=== PATIENT | female | born 1945 | race Caucasian/White ===

== ENCOUNTER 2017-10-09 19:25 | Inpatient (IN) | payer MEDICARE, MEDICAID ==
[~2017-10-09] VITALS: Ht 167.6 cm; Wt 73.0 kg
[2017-10-09] VITALS (10 sets, daily range): BP systolic 72–141; BP diastolic 25–89
--- NOTE | 2017-10-09 19:25 | NUR ---
FOUND TRIPODDING, RETRACTING AND SATURATING 88% NRB; RA SATS REPORTED BY STAFF. ARRIVED ON C-PAP W/ALBUTEROL. PT IS HYPOTENSIVE AND TACHYPNIC. IV LINE PLACED COMMUNICATIONS EQUIPMENT SUPERVISOR LEFT HAND 20G. A/OX3 BUT LETHARGIC. WILL CONTINUE TO MONITOR FOR ANY CHANGES DURING THE SHIFT.
--- NOTE | 2017-10-09 19:26 | NUR ---
ER AT BEDSIDE FOR EVAL
--- NOTE | 2017-10-09 19:30 | NUR ---
BLOOD SENT TO LAB WITH PER ASSESSMENT NURSE
[2017-10-09 19:54] LABS: CARBON DIOXIDE 28 mmol/L (21-32); CHLORIDE 97 mmol/L (98-107); CREATININE 3.3 mg/dL (0.6-1.3); GLUCOSE 283 mg/dL (74-106); POTASSIUM 4.8 mmol/L (3.5-5.1); SODIUM SERUM 136 mmol/L (136-145); UREA NITROGEN, BLOOD 45 mg/dL (7-18)
--- NOTE | 2017-10-09 19:54 | NUR ---
RT AT BEDSIDE. PT TO GO ON BIPAP. AWAITING COMPLETION FOR SETTINGS
--- NOTE | 2017-10-09 19:57 | NUR ---
THERMOSTAT MAKER AT BEDSIDE
[2017-10-09 19:58] LABS: INR 1.01 (0.85-1.15)
[2017-10-09 20:04] LABS: TROPONIN I 0.696 ng/mL (0.00-0.056)
--- NOTE | 2017-10-09 20:07 | NUR ---
BI-PAP SETTINGS 01/10 RATE OF 14 WITH 02 SATURATION OF 99%
--- NOTE | 2017-10-09 20:07 | NUR ---
ABG BY RT AT BEDSIDE CURRENTLY
[2017-10-09 20:08] LABS: BASOPHILS % (AUTO) 0.3 % (0.0-2.0); EOSINOPHILS % (AUTO) 1.3 % (0.0-6.0); HEMATOCRIT 29 % (33-45); HEMOGLOBIN 9.7 g/dL (11.5-14.8); LYMPHOCYTES # (AUTO) 0.7 /CMM (0.8-4.8); LYMPHOCYTES % (AUTO) 6.2 % (20.0-44.0); MEAN CORPUSCULAR HGB CONC 34 g/dl (31.0-36.0); MEAN CORPUSCULAR VOLUME 87 fL (82-100); MONOCYTES % (AUTO) 9.1 % (2.0-12.0); NEUTROPHILS # (AUTO) 9.3 /CMM (1.8-8.9); NEUTROPHILS % (AUTO) 83.1 % (43.0-81.0); PLATELET COUNT (AUTO) 228 /CMM (150-450); RDW COEFFICIENT OF VARIATION 14.9 (11.5-15.0); RED BLOOD CELL COUNT(AUTO) 3.32 MIL/uL (4.0-5.2); WHITE BLOOD COUNT (AUTO) 11.1 K/uL (4.3-11.0)
[2017-10-09] MEDS ORDERED: ALBUTEROL FS 2.5 MG/3 ML VIAL.NEB ONE (20:28)
[2017-10-09] MEDS ORDERED: IPRATROPIUM NEB FS 0.5 MG/2.5 ML AMPUL.NEB ONE (20:28)
[2017-10-09] MEDS ORDERED: ALBUTEROL SULFATE 8 GM HFA.AER.AD IH ONE (20:30)
[2017-10-09] MEDS ORDERED: IPRATROPIUM NEB FS 0.5 MG/2.5 ML AMPUL.NEB NEB ONE (20:30)
[2017-10-09 20:57] LABS: ABG BASE EXCESS 2.5 mmol/L; ABG OXYGEN SATURATION 97.5 % (92.0-98.5); ABG PCO2 44.1 mmHg (35.0-45.0); ABG PH 7.412 (7.350-7.450); ABG PO2 112.9 mmHg (75.0-100.0); AaDO2 121.6 mmHg; COHb 0.3 % (0.5-1.5); MetHb 0.3 % (0.0-1.5); O2Hb 96.9 % (94.0-97.0); SITE, ABG Left Radial; VENT MODE, BG BIPAP 15/5
--- NOTE | 2017-10-09 21:10 | NUR ---
PT IS CURRENTLY ON BIPAP 15/5 R 14 40%. ABG RESULTS GIVEN TO MD. PT IS TO REMAIN ON BIPAP ON NOTED SETTINGS. BREATHING TX GIVEN ORDERED. VERIFY WITH MD 5 MG OF 2.5/3 ALBUTEROL AND 1 MG OF ATROVENT. WILL CONT TO MONITOR PT.
--- NOTE | 2017-10-09 21:28 | NUR ---
PT IS ASSIGNED TO ICU RM#: [id number], PT IS DIAGNOSED WITH RESPIRATORY FAILURE, AND DR WEINER IS THE ACCEPTING MD.
[2017-10-09] MEDS ORDERED: methylPREDNISolone SOD SUCC 125 MG/2ML VIAL IV ONE (21:30)
[2017-10-09] MEDS ORDERED: FUROSEMIDE 40 MG/4 ML VIAL IV ONE (21:30)
[2017-10-09] MEDS ORDERED: FUROSEMIDE 40 MG/4 ML VIAL ONE (21:34)
[2017-10-09] MEDS ORDERED: methylPREDNISolone SOD SUCC 125 MG/2ML VIAL ONE (21:34)
--- NOTE | 2017-10-09 21:52 | NUR ---
REPORT GIVEN TO YAMIL
[2017-10-09] MEDS ORDERED: MAGNESIUM HYDROXIDE 30 ML UDC PO PRN (22:00)
[2017-10-09] MEDS ORDERED: MAG HYDROX/AL HYDROX/SIMETH 30 ML UDC PO PRN (22:00)
[2017-10-09] MEDS ORDERED: ONDANSETRON HCL/PF 4 MG/2 ML VIAL IVP PRN (22:00)
[2017-10-09] MEDS ORDERED: Z GUARD REMEDY 2 OZ OINT TP PRN (22:00)
[2017-10-09] MEDS ORDERED: ALBUTEROL FS 2.5 MG/0.5 ML VIAL.NEB NEB PRN (22:00)
[2017-10-09] MEDS ORDERED: ZOLPIDEM TARTRATE 5 MG TABLET PO PRN (22:00)
--- NOTE | 2017-10-09 22:00 | NUR ---
WOODWORKER NOTES ADMITTED FROM ER WHO PRESENTED FROM [facility] WITH SHORTNESS OF BREATH,DESATURATION HX OF CHF,CVA,TN,HTN,GERD,EMPHYSEMA,ESRD,DM,DEPRESSION. IN ER WAS GIVEN SOLUMEDROL 125 MG,LASIX 40 MG,ALBUTEROL TX 2X AND PLACED ON BIPAP WITH IMPROVEMENT. CXR SHOWED MILD BIBASILAR ATELECTASIS. BUN=45,CREAT=3.5EVI=[id number],TROPONIN=0.696 PH=7.41,PCO2=44.1'BS6=351.9 AWAKE,ALERT,VERBALLY RESPONSIVE,ANSWERS APPROPRIATELY,FOLLOWS COMMANDS BUT FEELS WEAK AND TIRED.,MOVES ALL EXTREMITIES BUT A LITTLE WEAK,ABLE TO LIFT ARMS AND LEGS.dIALYSIS CATHETER VIA LEFT SUBCLAVIAN AREA,HEPLOCKS ON RIGHT AC AND LEFT WRIST.COMFORT CARE DONE,NEEDS ATTENDED.WILL CLOSELY MONITOR RESPIRATORY STATUS ,WILL MAINTAIN ON BIPAP ALL NIGHT TOLERATED.
--- NOTE | 2017-10-09 22:19 | NUR ---
PT IS AWAKE ALERT. RECEIVED FROM ER ON BIPAP 15/5, 14, 40%. BS RALES BILAT. MEPILEX IN PLACE. BIPAP ALARMS SET AND AUDIBLE. AMBU BAG AT BEDSIDE. BIPAP PLUGGED INTO RED OUTLET. WILL CONTINUE TO MONITOR.
[2017-10-09] MEDS ORDERED: INSU100C10 SQ (22:21)
[2017-10-09] MEDS ORDERED: SEVE800T8 PO (22:21)
[2017-10-09] MEDS ORDERED: METO25TA6 PO (22:21)
[2017-10-09] MEDS ORDERED: INSU100V7 SQ (22:21)
[2017-10-09] MEDS ORDERED: PANT40TA4 PO (22:21)
[2017-10-09] MEDS ORDERED: ATOR20TA PO (22:21)
[2017-10-09] MEDS ORDERED: CLOP75TA15 PO (22:21)
[2017-10-09] MEDS ORDERED: ALBU0.633 NEB (22:21)
[2017-10-09] MEDS ORDERED: IPRA12.9 INH (22:21)
[2017-10-10] VITALS (40 sets, daily range): BP systolic 80–179; BP diastolic 30–87
--- NOTE | 2017-10-10 02:00 | NUR ---
V/STOL LANDING SIGNAL OFFICER NOTES ASLEEP,AROUSABLE,MAINTAINED ON BIPAP TOLERATING WELL ,REMAINS RESPONSIVE,NOT IN ANY DISTRESS.
[2017-10-10] MEDS ORDERED: DEXTROSE 50%-WATER 50 ML DISP.SYRIN IV PRN (02:30)
[2017-10-10 04:45] LABS: BASOPHILS % (AUTO) 0.1 % (0.0-2.0); HEMATOCRIT 27 % (33-45); HEMOGLOBIN 8.8 g/dL (11.5-14.8); LYMPHOCYTES # (AUTO) 0.5 /CMM (0.8-4.8); MEAN CORPUSCULAR HGB CONC 33 g/dl (31.0-36.0); MEAN CORPUSCULAR VOLUME 87 fL (82-100); MONOCYTES # (AUTO) 0.2 /CMM (0.1-1.30); MONOCYTES % (AUTO) 1.8 % (2.0-12.0); NEUTROPHILS # (AUTO) 9.1 /CMM (1.8-8.9); NEUTROPHILS % (AUTO) 93.1 % (43.0-81.0); PLATELET COUNT (AUTO) 201 /CMM (150-450); RDW COEFFICIENT OF VARIATION 15.8 (11.5-15.0); RED BLOOD CELL COUNT(AUTO) 3.06 MIL/uL (4.0-5.2); WHITE BLOOD COUNT (AUTO) 9.8 K/uL (4.3-11.0)
--- NOTE | 2017-10-10 05:00 | NUR ---
SALES ENABLEMENT LEAD NOTES AM CARE DONE,SKIN REMAINS INTACT WITH SMALL AREA OF REDNESS AT SACRAL COVERED WITH MEPILEX 0700 REPORT GIVEN TO DULCE SMART
[2017-10-10 05:03] LABS: CALCIUM, SERUM 9.1 mg/dL (8.5-10.1); CARBON DIOXIDE 27 mmol/L (21-32); CHLORIDE 98 mmol/L (98-107); CREATININE 3.9 mg/dL (0.6-1.3); GLUCOSE 269 mg/dL (74-106); MAGNESIUM 2.3 mg/dL (1.8-2.4); PHOSPHORUS 4.1 mg/dL (2.5-4.9); POTASSIUM 5.2 mmol/L (3.5-5.1); SODIUM SERUM 136 mmol/L (136-145); UREA NITROGEN, BLOOD 58 mg/dL (7-18)
[2017-10-10 05:13] LABS: CHOLESTEROL 124 mg/dL (<200); HDL CHOLESTEROL 74 mg/dL (40-60); LDL 43 mg/dL (0-99); TRIGLYCERIDES 45 mg/dL (30-150)
--- NOTE | 2017-10-10 07:15 | NUR ---
ARROW POINT ATTACHER CLOTILDE RECEIVED PATIENT AOX2-3 FOLLOW COMMANDS , ON BIPAP SETTINGS ORDERED WITH FIO2 40% SPO2 OF 100% , SR 75 ON BEDSIDE MONITOR , IV OF R WRIST AND R AC # 20 PATENT AND INTACT SL , L IJ HD CATH C/D/I , ALL NEEDS ATTENDED , BED ON LOW AND LOCKED POSITION ,SIDE RAILS X2 ,CALL LIGHT WITHIN REACH HOB @ 45 , WILL CONTINUE TO MONITOR
[2017-10-10] MEDS: BLOOD SUGAR DIAGNOSTIC 1 EACH STRIP VI SCH ×4 (07:48→21:23)
--- NOTE | 2017-10-10 08:50 | NUR ---
RECORD RETRIEVAL SPECIALIST NOTES SEEN AND EVALUATED BY DR ZELAYA PT CURRENTLY ON 5LPM NC SPO2 95% , NOT IN ACUTE DISTRESS , SPO2 OF 95-100% , AFEBRILE , V/S STABLE , DISCUSSED LABS AND CHEST XRMD PAULINE AWARE .
--- NOTE | 2017-10-10 08:50 | NUR ---
RT NOTE: ALERT PATIENT TAKEN OFF BIPAP AND PLACED ON 5LPM VIA NASAL CANNULA PER . TOLERATING WELL. RESPIRATIONS ARE EVEN AND UNLABORED. WILL CONTINUE TO MONITOR. NURSE(DULCE) AWARE.
[2017-10-10] MEDS ORDERED: FUROSEMIDE 40 MG/4 ML VIAL IV SCH (09:00)
--- NOTE | 2017-10-10 09:00 | NUR ---
HOME COORDINATOR NOTES SEEN AND EVALUATED BY DR SLOAN , DISCUSSED LABS , PT AOX3 , OFF BIPAP , ON 5LPM NC SPO2 OF 100% , WITH NO SIGNS OF DISTRESS , DISCUSSED THAT THERE IS NO DIET ORDER , BS OF 308MG/DL , ON STEROIDS , UNKNOWN WHEN IS THE LAST HD , PER MD START 1800 2GM SODIUM DIET , ORDERS CARRIED OUT .
--- NOTE | 2017-10-10 09:03 | NUR ---
CLINICAL DIETITIAN NOTES RT INGRAM AT BEDSIDE ,BIPAP ON HOLD , PATIENT PLACED ON 5LPM NC SPO2 OF 92-100% , WILL CONTINUE TO MONITOR
[2017-10-10] MEDS: ASPIRIN 325 MG TABLET PO SCH (09:12)
[2017-10-10] MEDS: PANTOPRAZOLE 40 MG TABLET.DR PO SCH (09:12)
[2017-10-10] MEDS: CLOPIDOGREL BISULFATE 75 MG TABLET PO SCH (09:13)
[2017-10-10] MEDS: methylPREDNISolone SOD SUCC 125 MG/2ML VIAL IV SCH ×4 (09:13→21:00)
[2017-10-10] MEDS: SEVELAMER CARBONATE 0.8 GM POWD.PACK GT SCH ×3 (09:16→17:09)
[2017-10-10] MEDS: METOPROLOL TARTRATE 25 MG TABLET PO SCH ×2 (09:17→16:53)
[2017-10-10] MEDS: INSULIN REGULAR, HUMAN 100 UNIT/ML 3 ML VIAL SQ PRN ×3 (09:26→16:58)
[2017-10-10 09:48] LABS: THYROID STIMULATING HORMONE 0.743 uIU/mL (0.358-3.74)
--- NOTE | 2017-10-10 10:12 | NUR ---
VULNERABILITY ASSESSMENT ANALYST NOTES HD AHMED AT BEDSIDE FOR HD , PT CURRENTLY STABLE PRIOR TO HD , AFEBRILE , V/S STABLE , WILL CONTINUE TO MONITOR
[2017-10-10] MEDS ORDERED: LEVOFLOXACIN 500 MG /D5W 100ML 500 MG in PREMIX 1 EA IV ONE (11:00)
[2017-10-10] MEDS ORDERED: ALBUMIN 25% 25 GM in PREMIX 1 EA IV ONE (11:30)
--- NOTE | 2017-10-10 12:10 | NUR ---
REFLOW OPERATOR NOTES PATIENT STABLE POST HD , TOLERATED WELL . NO OUTPUT NOTED , WILL CONTINUE TO MONITOR
[2017-10-10] MEDS: ALBUTEROL FS 2.5 MG/0.5 ML VIAL.NEB NEB SCH ×2 (15:02→19:57)
[2017-10-10] MEDS: GUAIFENESIN/D-METHORPHAN HB 5 ML UDC PO PRN ×2 (15:11→21:43)
[2017-10-10] MEDS: IPRATROPIUM NEB FS 0.5 MG/2.5 ML AMPUL.NEB NEB SCH (19:57)
--- NOTE | 2017-10-10 20:28 | NUR ---
received pt from day shift, alert, follows commands, SR, on 5L NS, sat well, lungs partially congested, some edema noted, tolerates feeding, anuric HD patient, v/s stable, no pain, pt turned and repositioned.
[2017-10-10] MEDS: ATORVASTATIN 10 MG TABLET PO SCH (21:05)
[2017-10-10] MEDS: *INSULIN REGULAR(HUMULIN R)HUM 100 UNIT/ML VIAL SQ PRN (21:23)
[2017-10-10 21:41] LABS: OCCULT BLOOD STOOL NEGATIVE (NEGATIVE)
[2017-10-11] VITALS (20 sets, daily range): BP systolic 81–155; BP diastolic 28–99
--- NOTE | 2017-10-11 00:27 | NUR ---
pt is resting in the bed, v/s stable, no pain, pt turned and repositioned q2hrs.
[2017-10-11] MEDS: IPRATROPIUM NEB FS 0.5 MG/2.5 ML AMPUL.NEB NEB SCH ×3 (01:31→20:03)
[2017-10-11] MEDS: ALBUTEROL FS 2.5 MG/0.5 ML VIAL.NEB NEB SCH ×3 (01:31→20:03)
--- NOTE | 2017-10-11 04:23 | NUR ---
pt is resting in the bed, no acute distress overnight, alert, follows commands, SR, on 5L NC, sat well, v/s stable, no pain, pt cleaned, changed and repositioned q2hrs.
[2017-10-11 04:30] LABS: HEMATOCRIT 22 % (33-45); HEMOGLOBIN 7.2 g/dL (11.5-14.8); LYMPHOCYTES # (AUTO) 0.8 /CMM (0.8-4.8); LYMPHOCYTES % (AUTO) 7.4 % (20.0-44.0); MEAN CORPUSCULAR HGB CONC 32 g/dl (31.0-36.0); MEAN CORPUSCULAR VOLUME 88 fL (82-100); MONOCYTES # (AUTO) 0.7 /CMM (0.1-1.30); MONOCYTES % (AUTO) 5.9 % (2.0-12.0); NEUTROPHILS # (AUTO) 9.6 /CMM (1.8-8.9); NEUTROPHILS % (AUTO) 86.7 % (43.0-81.0); PLATELET COUNT (AUTO) 227 /CMM (150-450); RED BLOOD CELL COUNT(AUTO) 2.54 MIL/uL (4.0-5.2); WHITE BLOOD COUNT (AUTO) 11.1 K/uL (4.3-11.0)
[2017-10-11 04:48] LABS: ALANINE AMINOTRANSFERASE 25 U/L (12-78); ALBUMIN 2.6 g/dL (3.4-5.0); ALKALINE PHOSPHATASE 93 U/L (46-116); ASPARTATE AMINOTRANSFERASE 15 U/L (15-37); BILIRUBIN,TOTAL 0.3 mg/dL (0.2-1.0); CARBON DIOXIDE 23 mmol/L (21-32); CHLORIDE 100 mmol/L (98-107); CREATININE 4.5 mg/dL (0.6-1.3); GLUCOSE 270 mg/dL (74-106); MAGNESIUM 3.1 mg/dL (1.8-2.4); PHOSPHORUS 5.8 mg/dL (2.5-4.9); SODIUM SERUM 137 mmol/L (136-145); TOTAL PROTEIN, SERUM 6.8 g/dL (6.4-8.2); UREA NITROGEN, BLOOD 66 mg/dL (7-18)
[2017-10-11 04:57] LABS: LYMPHOCYTES % (MANUAL) 7 % (16-48); MONOCYTES % (MANUAL) 3 % (0-11.0); NEUTROPHILS % (MANUAL) 90 (42-76); TROPONIN I 0.587 ng/mL (0.00-0.056)
[2017-10-11 05:22] LABS: FERRITIN 1277 ng/mL (8-388)
--- NOTE | 2017-10-11 07:10 | NUR ---
RN NOTES RECEIVED PT ASLEEP, EASILY AROUSABLE. ON 02 AT 3LPM VIA NC. HOB ELEVATED. NO RESPIRATORY DISTRESS NOTED. NO SOB NOTED. IV LINES IN PLACE. PT REPOSITIONED. COMFORTABLE. BLE ELEVATED. CALL LIGHT WITHIN REACH. WILL MONITOR.
--- NOTE | 2017-10-11 08:00 | NUR ---
RN NOTES HD STARTED. VS STABLE. NO RESPIRATORY DISTRESS NOTED. WILL MONITOR
[2017-10-11] MEDS: BLOOD SUGAR DIAGNOSTIC 1 EACH STRIP VI SCH ×4 (08:25→21:57)
[2017-10-11] MEDS: methylPREDNISolone SOD SUCC 125 MG/2ML VIAL IV SCH ×4 (09:57→21:57)
[2017-10-11] MEDS: CLOPIDOGREL BISULFATE 75 MG TABLET PO SCH (09:57)
[2017-10-11] MEDS: PANTOPRAZOLE 40 MG TABLET.DR PO SCH (09:57)
[2017-10-11] MEDS: SEVELAMER CARBONATE 0.8 GM POWD.PACK GT SCH ×3 (09:57→17:35)
[2017-10-11] MEDS: ASPIRIN 325 MG TABLET PO SCH (09:57)
[2017-10-11] MEDS: METOPROLOL TARTRATE 25 MG TABLET PO SCH ×2 (09:57→16:33)
--- NOTE | 2017-10-11 10:00 | NUR ---
RN NOTES HD DONE. REMOVED 1L. VS STABLE. TOLERATED WELL. WILL MONITOR.
[2017-10-11] MEDS: INSULIN REGULAR, HUMAN 100 UNIT/ML 3 ML VIAL SQ PRN ×3 (10:12→16:50)
[2017-10-11] MEDS: GUAIFENESIN/D-METHORPHAN HB 5 ML UDC PO PRN ×2 (10:19→21:57)
--- NOTE | 2017-10-11 10:30 | NUR ---
RN NOTES TRANSFERRED PT TP ROOM 112-1. PT A/OX3-4. ON 02 AT 3LPM VIA NC. NO RESPIRATORY DISTRESS NOTED. NO SOB NOTED. DENIES ANY PAIN. VS WNL. PT COMFORTABLE. FLAVIA SMART AT BEDSIDE. TOOK OVER PT'S CARE.
--- NOTE | 2017-10-11 10:39 | NUR ---
RN NOTE RECEIVED REPORT FROM KESHIA IN ICU. RECEIVED PATIENT ALERT AND ORIENTED X3 SHE IS ABLE TO MAKE THINGS KNOWN AND VERBALIZE NEEDS. BREATHING EVEN AND UNLABORED WITH NO DISTRESS NOTED. CURRENTLY ON 3L VIA NC SATURATING WELL. ON BEAUTY SCHOOL INSTRUCTOR SINUS RHYTHM HR OF 80. IV SITE INTACT AND PATENT. REORIENTED PATIENT WITH CALL LIGHT AND NURSES BUTTON IF NEEDED. BED LOCKED AND LOW POSITION. PLACED CALL LIGHT WITH IN REACH. WILL CONTINUE TO MONITOR CLOSELY
--- NOTE | 2017-10-11 19:15 | NUR ---
HYPO SPLASHER NOTE RECEIVED PATIENT AOX3, WITH HOB ELEVATED, DENIES HAVING ANY PAIN, + NONPRODUCTIVE COUGH, OXYGEN AT 3L VIA NC, TELE SR 63, NO CARDIAC OR RESPIRATORY DISTRESS NOTED, SKIN KEPT CLEAN AND DRY, RAC #20 SL, R WRIST #20 SL, BOTH PATENT, FLUSHING WELL, SITE CDI, L SUBCLAVIAN HD CATH, SITE COVERED WITH DRESSING CLEAN AND DRY, SAFETY MAINTAINED AT ALL TIMES, BED IN LOW LOCKED POSITION, CALL LIGHT WITHIN REACH, WILL CONTINUE TO MONITOR FOR ANY CHANGES IN CONDITION.
--- NOTE | 2017-10-11 19:24 | NUR ---
RN NOTE PATIENT REMAINED STABLE THROUGHOUT SHIFT WITH NO ACUTE DISTRESS. WILL ENDORSE TO NEXT SHIFT TO CONTINUE CONTINUITY OF CARE.
[2017-10-11] MEDS: ATORVASTATIN 10 MG TABLET PO SCH (21:57)
[2017-10-11] MEDS: *INSULIN REGULAR(HUMULIN R)HUM 100 UNIT/ML VIAL SQ PRN (22:06)
[2017-10-11] MEDS: LORAZEPAM 1 MG TABLET PO PRN (23:06)
[2017-10-12] VITALS: BP 96/47
[2017-10-12] MEDS: IPRATROPIUM NEB FS 0.5 MG/2.5 ML AMPUL.NEB NEB SCH ×4 (01:22→19:48)
[2017-10-12] MEDS: ALBUTEROL FS 2.5 MG/0.5 ML VIAL.NEB NEB SCH ×4 (01:22→19:48)
[2017-10-12 04:00] VITALS: BP 134/93
[2017-10-12] MEDS: BLOOD SUGAR DIAGNOSTIC 1 EACH STRIP VI SCH ×4 (07:56→21:41)
[2017-10-12 08:00] VITALS: BP 105/42
--- NOTE | 2017-10-12 08:00 | NUR ---
TELE1/RN AM SHIFT INITIAL RECEIVED PT ASLEEP, A/O X 3, PT DENIES RESPIRATORY DISTRESS, ON 3L O2 VIA N/C SATURATING @ 95%, PT NOTED RHONCHI TO DIMINISHED LUNG SOUNDS. ON TELE WITH SINUS RHYTHM, HR 76. IV SITES PATENT WITH NO S/S OF INFECTION, SL. DIALYSIS CATHETER DRESSING INTACT & DRY. BLOOD GLUCOSE CHECKED, RESULT 379, NO S/S OF HYPERGLYCEMIA, PT TO BE GIVEN 15 UNITS OF REGULAR INSULIN PER ORDERED SLIDING SCALE. PT IS COMFORTABLE, SCHEDULED AM MEDS TO BE GIVEN. CL WITHIN REACHED AND SAFETY MAINTAINED. ON GOING MONITORING.
[2017-10-12] MEDS: INSULIN REGULAR, HUMAN 100 UNIT/ML 3 ML VIAL SQ PRN ×3 (08:36→17:30)
[2017-10-12] MEDS: PANTOPRAZOLE 40 MG TABLET.DR PO SCH (08:37)
[2017-10-12] MEDS: ASPIRIN 325 MG TABLET PO SCH (08:37)
[2017-10-12] MEDS: methylPREDNISolone SOD SUCC 125 MG/2ML VIAL IV SCH ×3 (08:37→17:31)
[2017-10-12] MEDS: CLOPIDOGREL BISULFATE 75 MG TABLET PO SCH (08:37)
[2017-10-12] MEDS: METOPROLOL TARTRATE 25 MG TABLET PO SCH ×2 (08:37→17:33)
[2017-10-12] MEDS: SEVELAMER CARBONATE 0.8 GM POWD.PACK GT SCH ×3 (08:37→17:32)
[2017-10-12] MEDS: LEVOFLOXACIN 250 MG /D5W 50 ML 250 MG in PREMIX 1 EA IV SCH (11:35)
[2017-10-12] MEDS: INSULIN GLARGINE, 100 UNIT/ML CARTRIDGE SQ SCH ×2 (11:35→21:49)
--- NOTE | 2017-10-12 12:00 | NUR ---
MS1/RN NOON ROUNDS PT NOTED COUGHING A BIT, BUT NO SOB. ON GOING MONITORING.
[2017-10-12 16:00] VITALS: BP 106/40
--- NOTE | 2017-10-12 16:00 | NUR ---
MS1/RN AFTERNOON ROUNDS PM CARE PROVIDED, NO CHANGE OF CONDITION. ON GOING MONITORING.
--- NOTE | 2017-10-12 19:30 | NUR ---
MS1/RN AM SHIFT END NOTES ALL NEEDS MET. NO ACUTE CHANGE OF CONDITION NOTED DURING THE SHIFT. PT ENDORSED TO PM NURSE TO CONTINUE CARE. CL WITHIN REACHED AND SAFETY MAINTAINED.
[2017-10-12 20:00] VITALS: BP 115/85
--- NOTE | 2017-10-12 20:00 | NUR ---
RN NOTES RECEIVED PATIENT IN BED, ALERT AND ORIENTED X3, NO DISTRESS, NO SOB, ON 2LPM VIA NC, SPO2 95%. NOTED INTERMITTENT COUGHING WITH SCANT MUCUS, HD CATH SECURED WITH DRESSING, KEPT ON HIGH PRUETT'S PER PATIENT'S PREFERENCE, NEEDS ATTENDED, CALL LIGHT WITHIN REACH.
[2017-10-12] MEDS: GUAIFENESIN/D-METHORPHAN HB 5 ML UDC PO PRN (21:18)
[2017-10-12] MEDS: ATORVASTATIN 10 MG TABLET PO SCH (21:18)
[2017-10-12] MEDS: *INSULIN REGULAR(HUMULIN R)HUM 100 UNIT/ML VIAL SQ PRN (21:48)
[2017-10-13] VITALS (60 sets, daily range): BP systolic 63–158; BP diastolic 16–87
[2017-10-13] MEDS: LORAZEPAM 1 MG TABLET PO PRN
[2017-10-13] MEDS: ALBUTEROL FS 2.5 MG/0.5 ML VIAL.NEB NEB SCH ×5 (01:21→19:38)
[2017-10-13] MEDS: IPRATROPIUM NEB FS 0.5 MG/2.5 ML AMPUL.NEB NEB SCH ×5 (01:21→19:38)
[2017-10-13] MEDS: GUAIFENESIN/D-METHORPHAN HB 5 ML UDC PO PRN ×2 (02:07→06:46)
--- NOTE | 2017-10-13 06:00 | NUR ---
RN NOTES GIVEN REPORT TO BING HERBERT FOR TRANSFER TO MS2, PATIENT IN STABLE CONDITION, NO DISTRESS. ALL DUE MEDICATIONS GIVEN, HYGIENE CARE PROVIDED.
[2017-10-13] MEDS: BLOOD SUGAR DIAGNOSTIC 1 EACH STRIP VI SCH ×4 (06:11→21:56)
[2017-10-13] MEDS: INSULIN REGULAR, HUMAN 100 UNIT/ML 3 ML VIAL SQ PRN (06:14)
--- NOTE | 2017-10-13 06:45 | NUR ---
MS RN NOTES RECEIVED AWAKE A/O X3. NOT IN ANY DISTRESS. NO SOB NOTED. DENIES ANY PAIN OR DISCOMFORT AT THIS TIME. WITH IV-HL PATENT & INTACT. CALL LIGHT WITHIN REACH. BED IN LOWEST POSITION. SR UP X 3 FOR SAFETY. WILL CONTINUE TO MONITOR.
[2017-10-13 06:48] LABS: BASOPHILS % (AUTO) 0.1 % (0.0-2.0); HEMATOCRIT 25 % (33-45); HEMOGLOBIN 8.4 g/dL (11.5-14.8); MEAN CORPUSCULAR HGB CONC 34 g/dl (31.0-36.0); MEAN CORPUSCULAR VOLUME 86 fL (82-100); MONOCYTES % (AUTO) 9.2 % (2.0-12.0); NEUTROPHILS # (AUTO) 8.9 /CMM (1.8-8.9); NEUTROPHILS % (AUTO) 81.7 % (43.0-81.0); PLATELET COUNT (AUTO) 258 /CMM (150-450); RDW COEFFICIENT OF VARIATION 15.6 (11.5-15.0); RED BLOOD CELL COUNT(AUTO) 2.93 MIL/uL (4.0-5.2); WHITE BLOOD COUNT (AUTO) 10.9 K/uL (4.3-11.0)
[2017-10-13 07:12] LABS: ALANINE AMINOTRANSFERASE 24 U/L (12-78); ALBUMIN 2.8 g/dL (3.4-5.0); ALKALINE PHOSPHATASE 84 U/L (46-116); ASPARTATE AMINOTRANSFERASE 16 U/L (15-37); BILIRUBIN,TOTAL 0.3 mg/dL (0.2-1.0); CALCIUM, SERUM 8.8 mg/dL (8.5-10.1); CARBON DIOXIDE 26 mmol/L (21-32); CHLORIDE 95 mmol/L (98-107); CREATININE 6.5 mg/dL (0.6-1.3); GLUCOSE 247 mg/dL (74-106); MAGNESIUM 3.1 mg/dL (1.8-2.4); PHOSPHORUS 6.2 mg/dL (2.5-4.9); POTASSIUM 4.5 mmol/L (3.5-5.1); SODIUM SERUM 133 mmol/L (136-145); TOTAL PROTEIN, SERUM 6.6 g/dL (6.4-8.2)
--- NOTE | 2017-10-13 07:18 | NUR ---
MS RN NOTES BP 86/45. RECHECKED BP 86/65. CALLED CHRISTINE JAMES AUTOMOTIVE DIAGNOSTIC TECHNICIAN MOLDED GOODS EMBOSSING PRESS OPERATOR FOR [facility]. AUTOMOTIVE DIAGNOSTIC TECHNICIAN MADE AWARE RE PT'S CONDITION. WITH NEW ORDERS TO GIVE NS BOLUS 500 ML X 1. KEEP MAP >66. ORDERS NOTED AND CARRIED OUT. WILL CONTINUE TO MONITOR. REPORT GIVEN TO ABBI FOR CONTINUITY OF CARE.
[2017-10-13 07:21] LABS: UREA NITROGEN, BLOOD 105 mg/dL (7-18)
[2017-10-13] MEDS: PANTOPRAZOLE 40 MG TABLET.DR PO SCH (07:30)
[2017-10-13] MEDS ORDERED: IV NS 0.9% 500 ML IV ONE ×2 (07:30→12:30)
--- NOTE | 2017-10-13 07:30 | NUR ---
RN MS NOTES PT IN BED, AWAKE, ALERT AND ORIENTED, DENIES PAIN, NO SOB, ON O2 AT 2LPM VIA NASAL CANULA, O2 SAT OF 97%, WITH COUGHING EPISODES, KEPT HOB ELEVATED, IV NS BOLUS ONGOING, WILL CONTINUE TO MONITOR.
[2017-10-13] MEDS: SEVELAMER CARBONATE 0.8 GM POWD.PACK GT SCH ×3 (08:00→17:56)
--- NOTE | 2017-10-13 08:30 | NUR ---
RN MS NOTES RECHECKED BP 95/50, PT SEEN BY CHRISTINE MANZO, RECHECKED BP MANUALLY 75/40, REPEAT 70/40, REPEATED WITH AUTOMATIC CUFF - 90/61, CHRISTINE MANZO MADE AWARE, PT ALERT, NO CHANGE IN LOC, WILL CONTINUE TO MONITOR.
[2017-10-13] MEDS: ASPIRIN 325 MG TABLET PO SCH (09:00)
[2017-10-13] MEDS: CLOPIDOGREL BISULFATE 75 MG TABLET PO SCH (09:00)
[2017-10-13] MEDS: METOPROLOL TARTRATE 25 MG TABLET PO SCH (09:00)
--- NOTE | 2017-10-13 09:00 | NUR ---
RN MS NOTES PO MEDS NOT GIVEN, PT WITH COUGHING EPISODES AND WITH SLIGHT RAPID BREATHING, UNABLE TO TOLERATE AT THIS TIME.
[2017-10-13] MEDS: methylPREDNISolone SOD SUCC 125 MG/2ML VIAL IV SCH ×2 (09:46→17:52)
--- NOTE | 2017-10-13 09:55 | NUR ---
RN MS NOTES PT SEEN AND EXAMINED BY DR. SLOAN, INFORED OF PT'S LOW BP, ORDERED ABG, PT'S BP NOW IS 72/41 HR 78, MD AWARE.
--- NOTE | 2017-10-13 10:10 | NUR ---
RN MS NOTES PT SEEN BY DR. CORONADO, BP RECHECKED, 68/32, HR 130, DR. SLOAN MADE AWARE.
--- NOTE | 2017-10-13 10:30 | NUR ---
RN MS NOTES DR. SLOAN ORDERED PT TO BE TRANSFERRED TO ICU, NOTED AND CARRIED OUT.
[2017-10-13 10:42] LABS: ABG BASE EXCESS -0.7 mmol/L; ABG OXYGEN SATURATION 95.5 % (92.0-98.5); ABG PCO2 39.7 mmHg (35.0-45.0); ABG PH 7.399 (7.350-7.450); COHb 0.3 % (0.5-1.5); MetHb 0.5 % (0.0-1.5); O2Hb 94.7 % (94.0-97.0)
--- NOTE | 2017-10-13 10:50 | NUR ---
RN MS NOTES PT AWAKE, ALERT, O2 SAT 98% ON 2L O2 VIA N/C, INFORMED PT AND FAMILY THAT PT IS TRANSFERRING TO ICU, TRANSFERED PT BY BED VIA ACLS PROTOCOL, PT RECEIVED BY OLEG SMART, BEDSIDE REPORT GIVEN, PT TRANSFERED WITH ALL MEDS AND BELONGINGS.
[2017-10-13] MEDS ORDERED: NOREPINEPHRINE 8 MG in IV D5W 500 ML IV PRN (11:00)
[2017-10-13 11:42] LABS: ABG OXYGEN SATURATION 91.9 % (92.0-98.5); ABG PCO2 47.8 mmHg (35.0-45.0); ABG PH 7.337 (7.350-7.450); ABG PO2 70.7 mmHg (75.0-100.0); AaDO2 101.5 mmHg; COHb 0.3 % (0.5-1.5); MetHb 0.3 % (0.0-1.5); O2Hb 91.3 % (94.0-97.0); SITE, ABG Left Radial
--- NOTE | 2017-10-13 12:00 | NUR ---
Pt is awake cooperative denies dizziness, lightheadedness. bp remains low. Dr Porter is here, ok to hold off Levophed give bolus 500ml open.
[2017-10-13] MEDS: GUAIFENESIN LA 600 MG TABLET.SA PO SCH ×2 (12:32→20:16)
--- NOTE | 2017-10-13 14:00 | NUR ---
Pt remains asymptomatic, bp remains low. pt initated on Levo 1 oxana per protocol.
[2017-10-13] MEDS: HYDROCODONE BIT/HOMATROPINE 5 ML UDC PO PRN ×2 (14:03→20:16)
--- NOTE | 2017-10-13 14:30 | NUR ---
BP 72/44 levo titrated up 2 nics. now bp 93/32
[2017-10-13] MEDS: *INSULIN REGULAR(HUMULIN R)HUM 100 UNIT/ML VIAL SQ PRN ×2 (17:55→21:56)
--- NOTE | 2017-10-13 19:47 | NUR ---
RN NOTES RECEIVED PT ASLEEP ON BED RESPONSIVE TO VERBAL AND TACTILE STIMULI. DENIES PAIN. WARMTH TO TOUCH, AFEBRILE. NO ACUTE RESP DISTRESS WITH O2 2LPM VIA NC TOLERATED WELL SATURATING 100%. TELE MONITOR READ SR HR 78/ WITH IV LINE ON LH G 22 AND RFA G 20 RUNNING WITH LEVOPHED @ 2 MCG/MIN INTACT AND PATENT. BP WNL AT THIS TIME WILL TITRATE ACCORDINGLY. PT IS CLEANED AND DRY. WILL MONITOR CLOSELY.
[2017-10-13] MEDS: INSULIN GLARGINE, 100 UNIT/ML CARTRIDGE SQ SCH (21:56)
[2017-10-14] VITALS (75 sets, daily range): BP systolic 85–128; BP diastolic 28–90
[2017-10-14] MEDS: IPRATROPIUM NEB FS 0.5 MG/2.5 ML AMPUL.NEB NEB SCH ×4 (01:36→19:47)
[2017-10-14] MEDS: ALBUTEROL FS 2.5 MG/0.5 ML VIAL.NEB NEB SCH ×4 (01:36→19:47)
[2017-10-14] MEDS: HYDROCODONE BIT/HOMATROPINE 5 ML UDC PO PRN (02:32)
--- NOTE | 2017-10-14 06:01 | NUR ---
RN NOTES PT STILL NOTED WITH PRODUCTIVE COUGH, PRN MEDICINE GIVEN ORDERED, EFFECTIVE. CONTINUE WITH LEVOPHED TITRATED ACCORDINGLY. REMAINED AFEBRILE. NO S/S OF HYPO OR HYPERGLYCEMIA. CONTINUE ON MONITOR. BED BATH DONE PHOTO TAKEN. KEPT CELANA DN COMFORTABLE IN BED. WILL ENDORSED CONTINUITY OF CARE TO AM NURSE.
--- NOTE | 2017-10-14 07:05 | NUR ---
RN INITIAL NOTES RECEIVED PT AWAKE, A/OX2. ON 02 AT 2LPM VIA NC. NO RESPIRATORY DISTRESS NOTED. NO SOB NOTED. HOB ELEVATED. IV LINES IN PLACE. ON LEVO AT 1MCG/MIN. PT REPOSITIONED. BLE ELEVATED. PT COMFORTABLE. WILL MONITOR.
--- NOTE | 2017-10-14 08:00 | NUR ---
RN NOTES SEEN AND EXAMINED BY DR. AHUJA. PT ON LEVO AT 1MCG/MIN. MD AWARE OF CURRENT LAB VALUES AND CXR RESULT. WILL CONTINUE TO MONITOR
[2017-10-14] MEDS: ASPIRIN 325 MG TABLET PO SCH (08:10)
[2017-10-14] MEDS: methylPREDNISolone SOD SUCC 125 MG/2ML VIAL IV SCH ×2 (08:10→17:16)
[2017-10-14] MEDS: GUAIFENESIN LA 600 MG TABLET.SA PO SCH ×2 (08:10→21:03)
[2017-10-14] MEDS: SEVELAMER CARBONATE 0.8 GM POWD.PACK GT SCH ×3 (08:11→17:16)
[2017-10-14] MEDS: PANTOPRAZOLE 40 MG TABLET.DR PO SCH (08:11)
[2017-10-14] MEDS: BLOOD SUGAR DIAGNOSTIC 1 EACH STRIP VI SCH ×4 (08:11→20:57)
[2017-10-14] MEDS: CLOPIDOGREL BISULFATE 75 MG TABLET PO SCH (08:11)
[2017-10-14 08:16] LABS: BASOPHILS # (AUTO) 0.1 /CMM (0.0-0.2); BASOPHILS % (AUTO) 0.4 % (0.0-2.0); EOSINOPHILS % (AUTO) 0.3 % (0.0-6.0); HEMATOCRIT 26 % (33-45); HEMOGLOBIN 8.7 g/dL (11.5-14.8); LYMPHOCYTES # (AUTO) 1.9 /CMM (0.8-4.8); LYMPHOCYTES % (AUTO) 14.4 % (20.0-44.0); MEAN CORPUSCULAR HGB CONC 33 g/dl (31.0-36.0); MEAN CORPUSCULAR VOLUME 86 fL (82-100); MONOCYTES # (AUTO) 1.3 /CMM (0.1-1.30); MONOCYTES % (AUTO) 9.8 % (2.0-12.0); NEUTROPHILS # (AUTO) 9.8 /CMM (1.8-8.9); NEUTROPHILS % (AUTO) 75.1 % (43.0-81.0); PLATELET COUNT (AUTO) 288 /CMM (150-450); RDW COEFFICIENT OF VARIATION 16.1 (11.5-15.0); RED BLOOD CELL COUNT(AUTO) 3.04 MIL/uL (4.0-5.2); WHITE BLOOD COUNT (AUTO) 13.1 K/uL (4.3-11.0)
[2017-10-14 08:35] LABS: CALCIUM, SERUM 8.8 mg/dL (8.5-10.1); CARBON DIOXIDE 26 mmol/L (21-32); CHLORIDE 100 mmol/L (98-107); GLUCOSE 117 mg/dL (74-106); POTASSIUM 4.6 mmol/L (3.5-5.1); SODIUM SERUM 139 mmol/L (136-145)
[2017-10-14 08:46] LABS: UREA NITROGEN, BLOOD 121 mg/dL (7-18)
[2017-10-14 08:47] LABS: CREATININE 7.7 mg/dL (0.6-1.3)
--- NOTE | 2017-10-14 10:00 | NUR ---
RN NOTES SEEN AND EXAMINED BY DR. ZELAYA. PT A/OX4. OFF LEVO. SBP 100S. ON 02 AT 2LPM VIA NC. HOB ELEVATED. NO SOB NOTED. MD ALSO AWARE OF LAB VALUES AND CXR RESULT. WILL MONITOR
--- NOTE | 2017-10-14 10:30 | NUR ---
RN NOTES HD STARTED. NO RESPIRATORY DISTRESS NOTED. NO SOB NOTED. VS WNL. WILL MONITOR
--- NOTE | 2017-10-14 11:00 | NUR ---
RN NOTES SEEN AND EXAMINED BY BRITTANY AVILA NP. PT A/OX2, HOB ELEVATED. NO SOB NOTED. HD ONGOING. WILL RESTART LEVO NEEDED. AWARE OF LAB VALUES: WBX 13.1, HGB 8.7, HCT 26, PLATELET 288, BUN 121M CREA 7.7. VALIDATION LEADER AWARE OF CXR RESULT. WILL MONITOR.
--- NOTE | 2017-10-14 12:00 | NUR ---
RN NOTES HD DONE. REMOVED 2L. TOLERATED WELL. LEVO RESTARTED WITH HD, WILL TITRATE ACCORDINGLY. WILL CONTINUE TO MONITOR.
[2017-10-14] MEDS: LEVOFLOXACIN 250 MG /D5W 50 ML 250 MG in PREMIX 1 EA IV SCH (12:44)
[2017-10-14] MEDS: INSULIN REGULAR, HUMAN 100 UNIT/ML 3 ML VIAL SQ PRN (17:22)
--- NOTE | 2017-10-14 18:48 | NUR ---
RN CLOSING NOTES NO SIGNIFICANT CHANGE NOTED. REMAINS ON 02 AT 2LPM VIA NC. NO RESPIRATORY DISTRESS NOTED. NO SOB NOTED. NO SIGNS OF PAIN NOTED. IV LINES IN PLACE. KEPT CLEAN AND DRY. REPOSITIONED Q2. BLE ELEVATED. ALL NEEDS ATTENDED AND MET. WILL ENDORSE FOR CONTINUITY OF CARE.
[2017-10-14] MEDS: INSULIN GLARGINE, 100 UNIT/ML CARTRIDGE SQ SCH (20:58)
[2017-10-14] MEDS: *INSULIN REGULAR(HUMULIN R)HUM 100 UNIT/ML VIAL SQ PRN (20:59)
[2017-10-15] VITALS (30 sets, daily range): BP systolic 70–135; BP diastolic 25–84
[2017-10-15] MEDS: ALBUTEROL FS 2.5 MG/0.5 ML VIAL.NEB NEB SCH ×4 (01:46→19:55)
[2017-10-15] MEDS: IPRATROPIUM NEB FS 0.5 MG/2.5 ML AMPUL.NEB NEB SCH ×4 (01:46→19:55)
[2017-10-15 04:31] LABS: HEMATOCRIT 29 % (33-45); HEMOGLOBIN 9.5 g/dL (11.5-14.8); LYMPHOCYTES # (AUTO) 0.6 /CMM (0.8-4.8); LYMPHOCYTES % (AUTO) 5.8 % (20.0-44.0); MEAN CORPUSCULAR HGB CONC 33 g/dl (31.0-36.0); MEAN CORPUSCULAR VOLUME 87 fL (82-100); MONOCYTES # (AUTO) 0.6 /CMM (0.1-1.30); MONOCYTES % (AUTO) 5.8 % (2.0-12.0); NEUTROPHILS # (AUTO) 9.2 /CMM (1.8-8.9); NEUTROPHILS % (AUTO) 88.4 % (43.0-81.0); PLATELET COUNT (AUTO) 271 /CMM (150-450); RDW COEFFICIENT OF VARIATION 15.8 (11.5-15.0); RED BLOOD CELL COUNT(AUTO) 3.29 MIL/uL (4.0-5.2); WHITE BLOOD COUNT (AUTO) 10.4 K/uL (4.3-11.0)
[2017-10-15 04:50] LABS: CALCIUM, SERUM 8.6 mg/dL (8.5-10.1); CARBON DIOXIDE 28 mmol/L (21-32); CHLORIDE 101 mmol/L (98-107); CREATININE 6.1 mg/dL (0.6-1.3); GLUCOSE 164 mg/dL (74-106); MAGNESIUM 2.3 mg/dL (1.8-2.4); PHOSPHORUS 5.8 mg/dL (2.5-4.9); POTASSIUM 5.1 mmol/L (3.5-5.1); SODIUM SERUM 137 mmol/L (136-145)
[2017-10-15 04:52] LABS: UREA NITROGEN, BLOOD 86 mg/dL (7-18)
--- NOTE | 2017-10-15 07:05 | NUR ---
RN INITIAL NOTES RECEIVED PT AWAKE, A/OX2. ON 02 AT 2LPM VIA NC. NO RESPIRATORY DISTRESS NOTED. NO SOB NOTED. HOB ELEVATED. IV LINES IN PLACE. PT REPOSITIONED. BLE ELEVATED. PT COMFORTABLE. WILL MONITOR.
[2017-10-15] MEDS: PANTOPRAZOLE 40 MG TABLET.DR PO SCH (08:14)
[2017-10-15] MEDS: CLOPIDOGREL BISULFATE 75 MG TABLET PO SCH (08:14)
[2017-10-15] MEDS: SEVELAMER CARBONATE 0.8 GM POWD.PACK GT SCH ×3 (08:14→17:10)
[2017-10-15] MEDS: GUAIFENESIN LA 600 MG TABLET.SA PO SCH ×2 (08:14→21:04)
[2017-10-15] MEDS: BLOOD SUGAR DIAGNOSTIC 1 EACH STRIP VI SCH ×4 (08:14→21:12)
[2017-10-15] MEDS: methylPREDNISolone SOD SUCC 125 MG/2ML VIAL IV SCH ×2 (08:14→17:10)
[2017-10-15] MEDS: ASPIRIN 325 MG TABLET PO SCH (08:14)
[2017-10-15] MEDS: INSULIN REGULAR, HUMAN 100 UNIT/ML 3 ML VIAL SQ PRN ×2 (08:31→17:17)
--- NOTE | 2017-10-15 09:00 | NUR ---
RN NOTES SEEN AND EXAMINED BY DR. ZELAYA. PT AWAKE, A/OX2. ON 02 AT 2PM VIA NC. NO SOB NOTED. HOB ELEVATED. AWARE OF LAB VALUES AND CXR RESULT. PT OK TO BE DOWNGRADED TO MEDSURG PER DR. AHUJA. WILL CONTINUE TO MONITOR.
--- NOTE | 2017-10-15 09:45 | NUR ---
RN NOTES HD STARTED. VS STABLE. NO SOB NOTED. NO RESPIRATORY DISTRESS NOTED. PT DENIES ANY PAIN. WILL MONITOR.
[2017-10-15] MEDS ORDERED: ALBUMIN 25% 25 GM in PREMIX 1 EA IV ONE (10:00)
--- NOTE | 2017-10-15 14:00 | NUR ---
RN NOTES SEEN AND EXAMINED BY DR. TEMPLETON. AWARE OF CURRENT LAB VALUES AND CXR RESULT. PT HAD HD TODAY, 1.5LOUT. TOLERATED WELL. ORDERED HD IN AM. WILL CONTINUE TO MONITOR.
--- NOTE | 2017-10-15 14:15 | NUR ---
RN NOTES SEEN AND EXAMINED BY CALOS AVILA NP. AWARE OF LAB VALUES: WBC 13.1, HCT 8.7, HCT 26, PLATELET 288, BUN 121, CREA 7.7. PT HAD HD TODAY, 1.5L OUT. COMMUNITY INTEGRATION SPECIALIST ORDERED LABS IN AM. WILL CONTINUE TO MONITOR.
[2017-10-15] MEDS: LORAZEPAM 1 MG TABLET PO PRN (14:17)
--- NOTE | 2017-10-15 18:30 | NUR ---
RN NOTES PT TRANSFERRED TO ROOM 202. PT AWAKE, A/OX2. ON 02 AT 2LPM VIA NC. NO SOB NOTED. DENIES ANY PAIN. PT STABLE. ENDORSED TO KARLO SMART AT BEDSIDE. TOOK OVER'S PT'S CARE.
--- NOTE | 2017-10-15 19:30 | NUR ---
RN NOTE; RECEIVED PT IN BED AWAKE AND RESPONSIVE, BREATHING EVENLY. NO SOB. NAD. NO C/O PAIN AT THIS TIME. PT TO BE TRANSFERRED TO THE THIRD FLOOR FOR TELE MONITORING. AWAITING FOR BED. NEEDS MET. BED LOW LOCKED. CALL LIGHT WITHIN REACH. WILL CONT TO MONITOR ,
--- NOTE | 2017-10-15 20:15 | NUR ---
OUTDOOR ADVENTURE LEADER OPENING NOTE - Transfer from MS-2 Patient came from MS-2 and was made comfortable in bed. She is AAOx2, with moist cough but breathing is even and nonlabored. BP on left arm was 92/46, 86/48, 70/48; BP on right arm was 62/28, 92/76. Telemonitor shows NSR at 83 bpm, O2 Sat 93% on 4L NC, Temp 98.5. BP from previous shifts trend low, but MD called and currently awaiting response. Patient is being closely monitored. Call alvarez is within reach.
--- NOTE | 2017-10-15 20:20 | NUR ---
PT WAS TRANSFERRED TO THE THIRD FLOOR ROOM 325-2 FOR TELE MONITORING UNDER ACLS PROTOCOL . BED SIDE REPORT GIVEN TO OBI SMART FOR THE JOSE.
[2017-10-15] MEDS: INSULIN GLARGINE, 100 UNIT/ML CARTRIDGE SQ SCH (21:13)
--- NOTE | 2017-10-15 21:30 | NUR ---
WOODEN FENCE ERECTOR NOTE - MD update Spoke with Kelechi Myers NP regarding patient's BP. Advised change in position to modified Trendelenburg with continued monitoring. Patient's BP following position change using manual cuff was 80/50, 82/50, 101/40. Will continue to monitor.
[2017-10-16] VITALS (8 sets, daily range): BP systolic 79–107; BP diastolic 43–67
--- NOTE | 2017-10-16 | NUR ---
TYPESETTERS PRINTER NOTE - BP Patient's BP dropped to 79/43. Patient still alert, no mental changes, no dizziness, no lightheadedness. Kelechi Myers, JOVANY made aware, and stated that he will review charts and possibly order a small IV bolus. Patient has ESRD and receives HD, thus cannot receive too much fluid. Will continue to monitor and wait for further instructions.
[2017-10-16] MEDS: IPRATROPIUM NEB FS 0.5 MG/2.5 ML AMPUL.NEB NEB SCH ×4 (01:29→19:31)
[2017-10-16] MEDS: ALBUTEROL FS 2.5 MG/0.5 ML VIAL.NEB NEB SCH ×4 (01:29→19:31)
--- NOTE | 2017-10-16 04:00 | NUR ---
CHEMICAL TEST ENGINEER NOTE - BP Per Kelechi Myers, aim to keep MAP >65; call if MAP <60. Since patient has CHF, ESRD, and is alert and oriented, will hold off on giving fluids.
[2017-10-16] MEDS: BLOOD SUGAR DIAGNOSTIC 1 EACH STRIP VI SCH ×4 (06:36→22:07)
[2017-10-16] MEDS: INSULIN REGULAR, HUMAN 100 UNIT/ML 3 ML VIAL SQ PRN ×3 (06:38→17:28)
--- NOTE | 2017-10-16 06:53 | NUR ---
MS CHARGING CAR OPERATOR CLOSING NOTE Pt in bed AAOx2, breathing on 4L O2 NC, no signs of acute distress. Vital sign machine is in room for close monitor of BP and O2. Per Kelechi Myers NP, aim to keep MAP >65 and call MD for MAP <60. Patient otherwise had no complaints overnight. Pt care endorsed to day shift RN.
[2017-10-16 07:00] LABS: BASOPHILS # (AUTO) 0.1 /CMM (0.0-0.2); EOSINOPHILS % (AUTO) 0.2 % (0.0-6.0); HEMATOCRIT 28 % (33-45); HEMOGLOBIN 9.4 g/dL (11.5-14.8); LYMPHOCYTES # (AUTO) 1.2 /CMM (0.8-4.8); LYMPHOCYTES % (AUTO) 8.3 % (20.0-44.0); MEAN CORPUSCULAR HGB CONC 33 g/dl (31.0-36.0); MEAN CORPUSCULAR VOLUME 86 fL (82-100); MONOCYTES # (AUTO) 0.9 /CMM (0.1-1.30); MONOCYTES % (AUTO) 5.7 % (2.0-12.0); NEUTROPHILS # (AUTO) 12.8 /CMM (1.8-8.9); NEUTROPHILS % (AUTO) 84.8 % (43.0-81.0); PLATELET COUNT (AUTO) 243 /CMM (150-450); RDW COEFFICIENT OF VARIATION 15.4 (11.5-15.0); RED BLOOD CELL COUNT(AUTO) 3.28 MIL/uL (4.0-5.2)
--- NOTE | 2017-10-16 07:30 | NUR ---
MS/RN OPENING NOTE PATIENT ALERT AND ORIENTED X2. DENIES SOB. RESPIRATION REGULAR AND UNLABORED. PATIENT IS ON OXYGEN AT 4L/MIN VIA NC. DENIES PAIN. LEFT HAND G 20 PATENT, RFA G 20 PATENT AND SALINE LOCKED. BED LOW AND LOCKED. SIDE RAILS UP X3. CALL LIGHT WITHIN REACH. WILL CONTINUE TO MONITOR.
[2017-10-16 07:41] LABS: CALCIUM, SERUM 8.4 mg/dL (8.5-10.1); CARBON DIOXIDE 27 mmol/L (21-32); CHLORIDE 100 mmol/L (98-107); CREATININE 4.5 mg/dL (0.6-1.3); GLUCOSE 179 mg/dL (74-106); MAGNESIUM 2.2 mg/dL (1.8-2.4); PHOSPHORUS 5.8 mg/dL (2.5-4.9); POTASSIUM 4.3 mmol/L (3.5-5.1); SODIUM SERUM 138 mmol/L (136-145); UREA NITROGEN, BLOOD 64 mg/dL (7-18)
[2017-10-16] MEDS: SEVELAMER CARBONATE 0.8 GM POWD.PACK GT SCH ×3 (09:10→17:24)
[2017-10-16] MEDS: methylPREDNISolone SOD SUCC 125 MG/2ML VIAL IV SCH ×2 (09:11→17:24)
[2017-10-16] MEDS: PANTOPRAZOLE 40 MG TABLET.DR PO SCH (09:11)
[2017-10-16] MEDS: ASPIRIN 325 MG TABLET PO SCH (09:11)
[2017-10-16] MEDS: CLOPIDOGREL BISULFATE 75 MG TABLET PO SCH (09:11)
[2017-10-16] MEDS: GUAIFENESIN LA 600 MG TABLET.SA PO SCH ×2 (09:11→22:16)
[2017-10-16] MEDS: LEVOFLOXACIN (250MG) 250 MG TABLET PO SCH (11:04)
--- NOTE | 2017-10-16 11:15 | NUR ---
MS/RN NOTE JOVANY AVILA IS MADE AWARE PATIENT ELEVATED ALL LABS, INCLUDING ELEVATED WBC. PER JOVANY AVILA NO NEW ORDERS.
[2017-10-16] MEDS ORDERED: ALBUMIN 25% 25 GM in PREMIX 1 EA IV ONE ×2 (12:00→14:00)
--- NOTE | 2017-10-16 14:10 | NUR ---
MS/RN NOTE ALBUMIN 25 GM DUE AT 1400 NOT ADMINISTERED DUE TO BLOOD PRESSURE STABLE DURING DIALYSIS.
--- NOTE | 2017-10-16 16:40 | NUR ---
MS/RN NOTE RECEIVED NEW ORDER FROM JOVANY JAY. NOTED AND CARRIED OUT.
[2017-10-16] MEDS ORDERED: MAGNESIUM HYDROXIDE 30 ML UDC PO ONE (17:00)
--- NOTE | 2017-10-16 18:13 | NUR ---
MS/RN CLOSING NOTE PATIENT ALERT AND ORIENTED X2. REDIRECTION AND REORIENTATION PROVIDED NEEDED. DENIES SOB. PATIENT IS ON OXYGEN AT 4L/MIN VIA NC AND OXYGEN SATURATION LEVEL IS AT 96%. RESPIRATION REGULAR AND UNLABORED. DENIES PAIN. LEFT HAND G 22 PATENT AND SALINE LOCKED. PATIENT IS INCONTINENT ON BOWEL AND BLADDER. GOOD AND GENTLE SKIN CARE RENDERED. NO EPISODES OF HAVING MAP <65. BED LOW AND LOCKED. SIDE RAILS UP X3. CALL LIGHT WITHIN REACH. WILL ENDORSE TO TRAVELING BUYER.
--- NOTE | 2017-10-16 19:30 | NUR ---
MS RN NOTES RECEIVED PT IN BED, AWAKE, A/O X 2, NO SOB NOTED, NO DISTRESS AT THIS TIME, HOB ELEVATED. NO S/S OF HYPO/ HYPERGLYCEMIA NOTED. IV SITE ON LEFT HAND INTACT AND PATENT, FLUSHED WITH NS, NO S/S OF INFILTRATION NOTED AT THIS TIME. PT DENIES ANY PAIN OR DISCOMFORT . ALL NEEDS ATTENDED AND MET, SAFETY PRECAUTIONS OBSERVED. CALL LIGHT WITHIN REACH. WILL CONT TO MONITOR.
--- NOTE | 2017-10-16 20:00 | NUR ---
PT'S O2C SAT IS 89 % AT THIS TIME, ON 02 @ 4LPM VIA NC , PT REMAINS A/O X 2, ENCOURAGED DEEP BREATHING, PT'S O2 SAT WENT UP TO 91 %, RT INFORMED AND AT BED SIDE. BREATHING TX GIVEN BY RT. STAT ABG ORDERED. CHAUNCEY, CHARGE NURSE AWARE.
[2017-10-16 20:18] LABS: ABG BASE EXCESS 4.8 mmol/L; ABG PH 7.491 (7.350-7.450); ABG PO2 66.3 mmHg (75.0-100.0); AaDO2 139.1 mmHg; COHb 0.4 % (0.5-1.5); MetHb 0.4 % (0.0-1.5); O2Hb 92.3 % (94.0-97.0); SITE, ABG Left Radial
[2017-10-16] MEDS: *INSULIN REGULAR(HUMULIN R)HUM 100 UNIT/ML VIAL SQ PRN (22:13)
[2017-10-16] MEDS: INSULIN GLARGINE, 100 UNIT/ML CARTRIDGE SQ SCH (22:13)
--- NOTE | 2017-10-16 22:24 | NUR ---
PT WAS SEEN AND EXAMINED BY CHRISTINE JAMES NP, INFORMED HIM REGARDING PT'S 02 SAT, PT'S ABG RESULT, REVIEWED BY JOVANY KING WITH N.O FOR STAT BREATHING TX, REY, RT INFORMED. PT'S 02 SAT 93 % AT THIS TIME. NO SOB NO DISTRESS NOTED AT THIS TIME. WILL MONITOR PT CLOSELY.
[2017-10-16] MEDS ORDERED: ALBUTEROL FS 2.5 MG/3 ML VIAL.NEB NEB ONE (22:30)
[2017-10-16] MEDS ORDERED: IPRATROPIUM NEB FS 0.5 MG/2.5 ML AMPUL.NEB NEB ONE (22:30)
[2017-10-17] VITALS (8 sets, daily range): BP systolic 90–114; BP diastolic 40–67
--- NOTE | 2017-10-17 00:10 | NUR ---
ENDORSED PT TO ISABEL, FABRIC STRETCHER ACCORDINGLY.
--- NOTE | 2017-10-17 00:15 | NUR ---
MS/DEVELOPMENT ENG; RECEIVED FROM THE BING PUCKETT FOR CONTINUITY OF CARE. AT THIS TIME PT IN BED AWAKE WITH O2 BY MASK 35 %. O2 SAT 91 -94 %. , HR 61. HL ON LH INTACT. BED ON LOWER POSITION AND LOCKED FOR SAFETY. SIDE RAILS ARE UP FOR SAFETY. HOB ELEVATED. HD CATH LCW INTACT. CONTINUE TO MONITOR. CALL LIGHT WITHIN REACH.
--- NOTE | 2017-10-17 01:35 | NUR ---
MS/STATISTICAL PROGRAMMER; RT REY IN TO THE PT CHECKED , TALKED TO AND GAVE HER BREATHING TREATMENT.
[2017-10-17] MEDS: IPRATROPIUM NEB FS 0.5 MG/2.5 ML AMPUL.NEB NEB SCH ×4 (01:37→20:23)
[2017-10-17] MEDS: ALBUTEROL FS 2.5 MG/0.5 ML VIAL.NEB NEB SCH ×4 (01:37→20:23)
--- NOTE | 2017-10-17 06:30 | NUR ---
MS/METERS SUPERINTENDENT; BS 274 COVERED WITH REGULAR INSULIN 9 UNITS SQ.
[2017-10-17] MEDS: BLOOD SUGAR DIAGNOSTIC 1 EACH STRIP VI SCH ×4 (06:39→21:10)
[2017-10-17] MEDS: INSULIN REGULAR, HUMAN 100 UNIT/ML 3 ML VIAL SQ PRN ×3 (06:43→17:54)
--- NOTE | 2017-10-17 06:57 | NUR ---
MS/WASHER ENGINEER; SLEPT FAIRLY. COUGHING NOTED OCC. HHN GIVEN BY THE RT SCHEDULED. WILL CONTINUE TO MONITOR. CALL LIGHT WITHIN REACH. WILL ENDORSE TO THE DAY SHIFT NURSE.
--- NOTE | 2017-10-17 07:30 | NUR ---
RN NOTES PATIENT RECEIVED AWAKE ALERT AND VERBALLY RESPONSIVE ABLE TO MAKE NEEDS KNOWN. RESPIRATIONS EVEN AND UNLABORED, O2 SAT 94 % ON VENTURI MASK, DNP AND RESPIRATORY AWARE, CONTINUE TO MONITOR AT THIS TIME. IV SITE PATENT AND INTACT NO REDNESS OR INFILTRATION NOTED. KEPT CLEAN DRY AND COMFORTABLE, CALL LIGHT WITHIN EASY REACH
[2017-10-17] MEDS: SEVELAMER CARBONATE 0.8 GM POWD.PACK GT SCH ×3 (08:16→17:53)
[2017-10-17] MEDS: ASPIRIN 325 MG TABLET PO SCH (08:16)
[2017-10-17] MEDS: GUAIFENESIN LA 600 MG TABLET.SA PO SCH ×2 (08:16→21:01)
[2017-10-17] MEDS: CLOPIDOGREL BISULFATE 75 MG TABLET PO SCH (08:16)
[2017-10-17] MEDS: methylPREDNISolone SOD SUCC 125 MG/2ML VIAL IV SCH ×2 (08:16→17:53)
[2017-10-17] MEDS: PANTOPRAZOLE 40 MG TABLET.DR PO SCH (08:16)
[2017-10-17 12:36] LABS: EOSINOPHILS % (AUTO) 0.1 % (0.0-6.0); HEMATOCRIT 30 % (33-45); HEMOGLOBIN 9.8 g/dL (11.5-14.8); LYMPHOCYTES # (AUTO) 0.4 /CMM (0.8-4.8); LYMPHOCYTES % (AUTO) 2.3 % (20.0-44.0); MEAN CORPUSCULAR HGB CONC 33 g/dl (31.0-36.0); MEAN CORPUSCULAR VOLUME 87 fL (82-100); MONOCYTES # (AUTO) 0.3 /CMM (0.1-1.30); MONOCYTES % (AUTO) 2.2 % (2.0-12.0); NEUTROPHILS # (AUTO) 14.7 /CMM (1.8-8.9); NEUTROPHILS % (AUTO) 95.4 % (43.0-81.0); PLATELET COUNT (AUTO) 238 /CMM (150-450); RDW COEFFICIENT OF VARIATION 15.9 (11.5-15.0); RED BLOOD CELL COUNT(AUTO) 3.42 MIL/uL (4.0-5.2); WHITE BLOOD COUNT (AUTO) 15.4 K/uL (4.3-11.0)
[2017-10-17 12:45] LABS: CALCIUM, SERUM 8.9 mg/dL (8.5-10.1); CARBON DIOXIDE 29 mmol/L (21-32); CHLORIDE 98 mmol/L (98-107); CREATININE 4.7 mg/dL (0.6-1.3); GLUCOSE 267 mg/dL (74-106); POTASSIUM 4.9 mmol/L (3.5-5.1); SODIUM SERUM 138 mmol/L (136-145); UREA NITROGEN, BLOOD 70 mg/dL (7-18)
--- NOTE | 2017-10-17 13:00 | NUR ---
RN NOTES PATIENT WEANED TO 2L VIA NC WITH O2 SAT OF 94% AND TOLERATED WELL, WILL CONTINUE TO MONITOR
[2017-10-17] MEDS: ALBUMIN 25% 25 GM in PREMIX 1 EA IV PRN (15:46)
--- NOTE | 2017-10-17 18:41 | NUR ---
RN NOTES URINE SAMPLE COLLECTED CALLED LAB FOR SHIFT PRODUCTION ASSOCIATE FOR ANALYSIS
--- NOTE | 2017-10-17 18:51 | NUR ---
RN NOTES PATIENT AWAKE ALERT AND VERBALLY RESPONSIVE ABLE TO MAKE NEEDS KNOWN. RESPIRATIONS EVEN AND UNLABORED, O2 SAT 94 % ON 2L VIA NC SAP PPM CONSULTANT AND RESPIRATORY AWARE, CONTINUE TO MONITOR AT THIS TIME. IV SITE PATENT AND INTACT NO REDNESS OR INFILTRATION NOTED. KEPT CLEAN DRY AND COMFORTABLE, CALL LIGHT WITHIN EASY REACH WILL CONTINUE TO MONITOR AND ENDORSE TO NEX SHIFT FOR CONTINUITY OF CARE
[2017-10-17 18:57] LABS: APPEARANCE,URINE CLEAR (CLEAR); BILIRUBIN,URINE NEGATIVE (NEGATIVE); BLOOD, URINE NEGATIVE Ery/uL (NEGATIVE); COLOR,URINE YELLOW (YELLOW); KETONES,URINE NEGATIVE (NEGATIVE); LEUKOCYTE ESTERASE ,URINE NEGATIVE (NEGATIVE); NITRITE, URINE NEGATIVE (NEGATIVE); PROTEIN,URINE 2+ mg/dl (NEGATIVE); UGLUCOSE 1+ mg/dL (NEGATIVE); UROBILINOGEN,URINE 0.2 EU/dL (0.2)
--- NOTE | 2017-10-17 19:10 | NUR ---
RN INITIAL NOTES: RECEIVED REPORT FROM KEVAN SMART, PT IN BED, ON HIGH PRUETT'S POSITION, CONNECTED TO CONTINUOUS PULSE OXIMETRY SPO2 94% ON 2.5L O2 VIA NC. RESPIRATION EVEN AND UNLABORED, RR 22. S/P HD TODAY WITH 2L OUTPUT, LEFT CW HD CATH IN PLACED, DRESSING C/D/I. NOTED PT'S BP ON LOW 90'S, WITH ORDER TO KEEP MAP GREATER THAN 65. PT A/O X1-2, DENIES ANY PAIN OR DISCOMFORT AT THIS TIME. NO FACIAL GRIMACE NOTED. APPEARS CALM AND COMFORTABLE. WILL MONITOR PT'S BP. DISCUSSED PLAN OF CARE TO THE PT. SAFETY PRECAUTIONS FOR FALL INITIATED, CALL LIGHT IN REACH, WILL CONTINUE MONITORING PT.
[2017-10-17 19:16] LABS: BACTERIA,URINE Rare /HPF (None Seen); RBC,URINE 0-2 /HPF (0-2); WBC,URINE 0-2 /HPF (0-3)
[2017-10-17 19:17] LABS: SQUAMOUS EPITHELIAL CELL,UR Few /HPF (None Seen)
[2017-10-17] MEDS: INSULIN GLARGINE, 100 UNIT/ML CARTRIDGE SQ SCH (21:12)
[2017-10-17] MEDS: *INSULIN REGULAR(HUMULIN R)HUM 100 UNIT/ML VIAL SQ PRN (21:14)
--- NOTE | 2017-10-17 21:14 | NUR ---
BS 296: BLOOD SUGAR 296, 6UNITS OF INSULIN COVERAGE GIVEN PER SLIDING SCALE. PT TOLERATING PO INTAKE, ON PUREE DIET
[2017-10-18] VITALS (53 sets, daily range): BP systolic 48–126; BP diastolic 21–95
--- NOTE | 2017-10-18 | NUR ---
rn notes: feed pt with pudding and cranberry juice with thickener, aspiration protocol followed, pt ate 100%, no aspiration noted.
[2017-10-18] MEDS: ALBUTEROL FS 2.5 MG/0.5 ML VIAL.NEB NEB SCH ×4 (02:48→20:34)
[2017-10-18] MEDS: IPRATROPIUM NEB FS 0.5 MG/2.5 ML AMPUL.NEB NEB SCH ×4 (02:48→20:34)
--- NOTE | 2017-10-18 03:30 | NUR ---
rn notes: pt noted to be sleeping, appears comfortable, no facial grimace noted.
--- NOTE | 2017-10-18 04:45 | NUR ---
RN NOTES: PT NOTED TO BE SHORT OF BREATH , PT ON 2.5L O2 VIA NC, SPO2 RANGING 85-88%, RR 23, BLOOD SUGAR WAS CHECKED RESULT IS 196, CONTACTED RT TO ASSIST IN SWITCHING PT TO VENTI MASK, PT MOUTH BREATHER AND HAS COPD,
[2017-10-18] MEDS: BLOOD SUGAR DIAGNOSTIC 1 EACH STRIP VI SCH ×4 (05:34→21:29)
[2017-10-18] MEDS: INSULIN REGULAR, HUMAN 100 UNIT/ML 3 ML VIAL SQ PRN (06:05)
--- NOTE | 2017-10-18 06:06 | NUR ---
BS 196: BS 196, 3UNITS OF INSULIN GIVEN PER SLIDING SCALE
[2017-10-18 06:29] LABS: BASOPHILS # (AUTO) 0.1 /CMM (0.0-0.2); BASOPHILS % (AUTO) 0.3 % (0.0-2.0); EOSINOPHILS % (AUTO) 0.4 % (0.0-6.0); HEMATOCRIT 29 % (33-45); HEMOGLOBIN 9.4 g/dL (11.5-14.8); LYMPHOCYTES # (AUTO) 1.5 /CMM (0.8-4.8); LYMPHOCYTES % (AUTO) 9.1 % (20.0-44.0); MEAN CORPUSCULAR HGB CONC 33 g/dl (31.0-36.0); MEAN CORPUSCULAR VOLUME 87 fL (82-100); MONOCYTES # (AUTO) 0.8 /CMM (0.1-1.30); MONOCYTES % (AUTO) 4.8 % (2.0-12.0); NEUTROPHILS # (AUTO) 14.2 /CMM (1.8-8.9); NEUTROPHILS % (AUTO) 85.4 % (43.0-81.0); PLATELET COUNT (AUTO) 218 /CMM (150-450); RDW COEFFICIENT OF VARIATION 16.1 (11.5-15.0); RED BLOOD CELL COUNT(AUTO) 3.32 MIL/uL (4.0-5.2); WHITE BLOOD COUNT (AUTO) 16.7 K/uL (4.3-11.0)
--- NOTE | 2017-10-18 06:45 | NUR ---
RN CLOSING NOTES: PT IN BED, AWAKE, REMAINS A/O X2, ON VENTI MASK AT 9L ON CONTINUOUS PULSE OXIMETRY SPO2 RANGING 92%. HD CATHETER REMAINS IN PLACED, DRESSING C/D/I. FOR DC PLANNING TODAY. EXIT CARE FILLED UP. SAFETY PRECAUTIONS FOR FALL REMAINS ENGAGED, CALL LIGHT IN REACH. WILL ENDORSE TO DAY RN FOR JSOE.
[2017-10-18 07:00] LABS: CALCIUM, SERUM 8.9 mg/dL (8.5-10.1); CARBON DIOXIDE 26 mmol/L (21-32); CHLORIDE 94 mmol/L (98-107); CREATININE 4.1 mg/dL (0.6-1.3); GLUCOSE 195 mg/dL (74-106); MAGNESIUM 2.4 mg/dL (1.8-2.4); PHOSPHORUS 5.1 mg/dL (2.5-4.9); POTASSIUM 4.8 mmol/L (3.5-5.1); SODIUM SERUM 134 mmol/L (136-145); UREA NITROGEN, BLOOD 60 mg/dL (7-18)
--- NOTE | 2017-10-18 07:20 | NUR ---
RN OPEN NOTES RECEIVED REPORT FROM YARN SALVAGER NURSE. PATIENT IS IN BED. ALERT AND ORIENTED TO NAME AND PLACE. NO SIGNS AND SYMPTOMS OF DISTRESS. DENIED PAIN. BED IN LOW POSITION, LOCKED AND TWO SIDE RAILS ARE UP FOR SAFETY. CALL LIGHT WITHIN REACH. HD TODAY. WILL CONTINUE TO MONITOR AND ASSESS PATIENT
[2017-10-18] MEDS: PANTOPRAZOLE 40 MG TABLET.DR PO SCH (07:30)
--- NOTE | 2017-10-18 07:44 | NUR ---
HD AT BEDSIDE. ALBUMIN ORDERED FROM PHARMACY. HOLDING AM MEDS
[2017-10-18] MEDS: SEVELAMER CARBONATE 0.8 GM POWD.PACK GT SCH ×3 (08:00→17:25)
[2017-10-18] MEDS: methylPREDNISolone SOD SUCC 125 MG/2ML VIAL IV SCH (08:17)
[2017-10-18] MEDS: GUAIFENESIN LA 600 MG TABLET.SA PO SCH ×2 (08:18→21:29)
[2017-10-18] MEDS: VIT B CMPLX 3/FA/VIT C/BIOTIN 1 TAB TABLET PO SCH (08:18)
[2017-10-18] MEDS: ASPIRIN 325 MG TABLET PO SCH (08:18)
[2017-10-18] MEDS: CLOPIDOGREL BISULFATE 75 MG TABLET PO SCH (08:18)
[2017-10-18] MEDS: ALBUMIN 25% 25 GM in PREMIX 1 EA IV PRN (08:36)
--- NOTE | 2017-10-18 09:20 | NUR ---
HD COMPLETED. 1.5L OUT
--- NOTE | 2017-10-18 09:35 | NUR ---
PATIENT DESAT TO THE LOW 80. INCREASE O2 TO 10L, PATIENT SAT AT LOW 90S. BLOOD PRESSURE 84/46. THERMAL CUTTING MACHINE OPERATOR BRITTANY AWARE. CHEST X RAY, ABG AND CBC STAT ORDERED.
[2017-10-18 09:57] LABS: ABG BASE EXCESS 1.1 mmol/L; ABG OXYGEN SATURATION 95.3 % (92.0-98.5); ABG PCO2 29.1 mmHg (35.0-45.0); ABG PH 7.521 (7.350-7.450); ABG PO2 78.5 mmHg (75.0-100.0); AaDO2 173.2 mmHg; COHb 0.3 % (0.5-1.5); MetHb 0.8 % (0.0-1.5); O2Hb 94.3 % (94.0-97.0); SITE, ABG Right Radial; VENT MODE, BG VENTI 40%
[2017-10-18] MEDS: ACETYLCYSTEINE 20% SOLN 800 MG/4 ML VIAL NEB SCH ×3 (10:08→23:04)
--- NOTE | 2017-10-18 10:11 | NUR ---
RT NOTES HHN TX OF MUCOMYST WAS GIVEN PER MD ORDER.PATIENT TOLERATED HHN TX Addendum: 10/18/17 at 1014 by ZULAY SHIPLEY RT Amended: Links added.
[2017-10-18] MEDS ORDERED: IV NS 0.9% 250 ML BAG IV ONE (10:30)
[2017-10-18] MEDS: LEVOFLOXACIN (250MG) 250 MG TABLET PO SCH (11:01)
--- NOTE | 2017-10-18 15:40 | NUR ---
LOW BLOOD PRESSURE 62/28. BRITTANY TIMBER INCISOR OPERATOR NOTIFIED. CBC STAT AND TRANSFER TO ICU
[2017-10-18 16:18] LABS: BASOPHILS % (AUTO) 0.2 % (0.0-2.0); EOSINOPHILS % (AUTO) 1.3 % (0.0-6.0); HEMATOCRIT 29 % (33-45); HEMOGLOBIN 9.6 g/dL (11.5-14.8); LYMPHOCYTES # (AUTO) 1.7 /CMM (0.8-4.8); LYMPHOCYTES % (AUTO) 10.7 % (20.0-44.0); MEAN CORPUSCULAR HGB CONC 33 g/dl (31.0-36.0); MEAN CORPUSCULAR VOLUME 86 fL (82-100); MONOCYTES # (AUTO) 0.9 /CMM (0.1-1.30); MONOCYTES % (AUTO) 5.9 % (2.0-12.0); NEUTROPHILS # (AUTO) 12.7 /CMM (1.8-8.9); NEUTROPHILS % (AUTO) 81.9 % (43.0-81.0); PLATELET COUNT (AUTO) 224 /CMM (150-450); RED BLOOD CELL COUNT(AUTO) 3.35 MIL/uL (4.0-5.2); WHITE BLOOD COUNT (AUTO) 15.5 K/uL (4.3-11.0)
--- NOTE | 2017-10-18 16:20 | NUR ---
NURSING SPECIALIST NOTE PT TRANSFERRED FROM 325-2 ROOM TO ROOM 261 ICU. PATIENT TRANSFERRED WITH THE BED. MELINA, BROTHER NOTIFIED. REPORT GAVE TO LUCIEN
--- NOTE | 2017-10-18 16:25 | NUR ---
ICU/RN PT TRANSFERRED FROM [facility] [place] [facility].BP 67/33.HR-80,RR-22,SAT O2-94% ON VENTURI MASK.IV-HL. ESRD ,ON HD SHE HAD HD IN AM.NEW IV STARTED ON RIGHT AC # 20.ANURIC.MULTIPLY BRUISES NOTED ALL OVER THE BODY.PT IS AWAKE,ALERT.
[2017-10-18] MEDS: NOREPINEPHRINE 16 MG in IV D5W 500 ML IV PRN (16:59)
--- NOTE | 2017-10-18 17:05 | NUR ---
ICU/RN LEVOPHED STARTED ORDERED.FAMILY NOTIFIED.-SISTER FRANCISCO JAVIER.CONSENT FOR PICC LINE SIGN.CONTINUE MONITORING.
[2017-10-18] MEDS: *INSULIN REGULAR(HUMULIN R)HUM 100 UNIT/ML VIAL SQ PRN ×2 (17:43→21:29)
--- NOTE | 2017-10-18 17:44 | NUR ---
ICU/RN BS-189.3 UNITS OF INSULIN SQ GIVEN ORDERED.DUE MEDS ARE GIVEN.PT IS ON LEVOPHED.CONTINUE MONITORING.
--- NOTE | 2017-10-18 18:23 | NUR ---
ICU/RN PT EATS 100% FROM HER MEAL TRAY HELPED WITH ASSISTANCE.ON LEVOPHED DRIP.AFEBRILE.NO PAIN REPORTED AT THIS TIME.ON 4L NC.,SAT O2-93%.CONTINUE MONITORING.
--- NOTE | 2017-10-18 19:30 | NUR ---
SLINGER SEQUINS INITIAL NOTE RECEIVED PATIENT AWAKE A/OX2, NO RESPIRATORY DISTRESS NOTED ON 4LPMO2 VIA NC. ON TELE MONITOR SR. SKIN WARM AND DRY TO TOUCH. DENIES PAIN OR DISCOMFORT. DENIES SOB. WITH LCW HD CATH IN PLACE, WITH LEVO AT 8MCG/MIN. HOB ELEVATED. SIDE RAILS UP AND LOCKED. BED KEPT AT LOWEST POSITION. CALL LIGHT KEPT WITHIN EASY REACH. WILL CONTINUE TO MONITOR.
[2017-10-18] MEDS: INSULIN GLARGINE, 100 UNIT/ML CARTRIDGE SQ SCH (21:22)
[2017-10-18] MEDS: HYDROCODONE/APAP 5/325MG 1 EACH TABLET PO PRN (21:30)
[2017-10-19] VITALS (87 sets, daily range): BP systolic 52–134; BP diastolic 29–95
[2017-10-19] MEDS: ALBUTEROL FS 2.5 MG/0.5 ML VIAL.NEB NEB SCH ×4 (02:20→20:22)
[2017-10-19] MEDS: IPRATROPIUM NEB FS 0.5 MG/2.5 ML AMPUL.NEB NEB SCH ×4 (02:20→20:22)
--- NOTE | 2017-10-19 04:00 | NUR ---
LIBRARY SERVICES ASSISTANT NOTE BED BATH GIVEN, TOLERATED WELL
[2017-10-19 04:45] LABS: BASOPHILS # (AUTO) 0.1 /CMM (0.0-0.2); BASOPHILS % (AUTO) 0.5 % (0.0-2.0); EOSINOPHILS % (AUTO) 2.1 % (0.0-6.0); HEMATOCRIT 34 % (33-45); HEMOGLOBIN 11.2 g/dL (11.5-14.8); LYMPHOCYTES # (AUTO) 2.5 /CMM (0.8-4.8); LYMPHOCYTES % (AUTO) 11.4 % (20.0-44.0); MEAN CORPUSCULAR HGB CONC 33 g/dl (31.0-36.0); MEAN CORPUSCULAR VOLUME 87 fL (82-100); MONOCYTES # (AUTO) 1.6 /CMM (0.1-1.30); MONOCYTES % (AUTO) 7.1 % (2.0-12.0); NEUTROPHILS # (AUTO) 17.5 /CMM (1.8-8.9); NEUTROPHILS % (AUTO) 78.9 % (43.0-81.0); PLATELET COUNT (AUTO) 293 /CMM (150-450); RDW COEFFICIENT OF VARIATION 15.8 (11.5-15.0); WHITE BLOOD COUNT (AUTO) 22.1 K/uL (4.3-11.0)
[2017-10-19 05:19] LABS: CALCIUM, SERUM 9.2 mg/dL (8.5-10.1); CARBON DIOXIDE 23 mmol/L (21-32); CHLORIDE 93 mmol/L (98-107); CREATININE 5.8 mg/dL (0.6-1.3); EOSINOPHILS % (MANUAL) 2 % (0-4); GLUCOSE 172 mg/dL (74-106); LYMPHOCYTES % (MANUAL) 14 % (16-48); MAGNESIUM 2.4 mg/dL (1.8-2.4); MONOCYTES % (MANUAL) 11 % (0-11.0); NEUTROPHILS % (MANUAL) 73 (42-76); PHOSPHORUS 5.4 mg/dL (2.5-4.9); POTASSIUM 4.6 mmol/L (3.5-5.1); SODIUM SERUM 135 mmol/L (136-145)
[2017-10-19 05:32] LABS: UREA NITROGEN, BLOOD 85 mg/dL (7-18)
--- NOTE | 2017-10-19 07:20 | NUR ---
MUTUAL FUND ANALYST CLOSING NOTE NO SIGNIFICANT CHANGES OVERNIGHT. ALL NEEDS ANTICIPATED AND MET. NO RESPIRATORY DISTRESS NOTED. KEPT CLEAN AND DRY. TURNED AND REPOSITIONED Q2 AND PRN. LEVO RUNNING AT 7MCG/MIN, TITRATED PER PROTOCOL. HOB ELEVATED. SIDE RAIL UP AND LOCKED. BED KEPT AT LOWEST POSITION. CALL LIGHT KEPT WITHIN EASY REACH. CONTINUITY OF CARE ENDORSED TO AM NURSE.
--- NOTE | 2017-10-19 07:34 | NUR ---
HEAD HOLDER RECEIVED PATIENT FORM THE PREVIOUS SHIFT. PATIENT IS IN BED. RESTING COMFORTABLY. NO ACUTE DISTRESS NOTED. ALERT AND AWAKE X1. SLEEPING AT THIS TIME. LEVOPHED AT 7 MCG AT THIS TIME. TURNED AND REPOSITIONED FOR COMFORT AND WOUND PREVENTION. WILL CONTINUE TO MONITOR AND PROVIDE CARE.
[2017-10-19] MEDS: ACETYLCYSTEINE 20% SOLN 800 MG/4 ML VIAL NEB SCH ×3 (07:36→23:54)
[2017-10-19] MEDS: BLOOD SUGAR DIAGNOSTIC 1 EACH STRIP VI SCH ×4 (07:42→21:24)
[2017-10-19] MEDS: PANTOPRAZOLE 40 MG TABLET.DR PO SCH (07:48)
[2017-10-19] MEDS: *INSULIN REGULAR(HUMULIN R)HUM 100 UNIT/ML VIAL SQ PRN ×4 (07:48→21:29)
[2017-10-19] MEDS: SEVELAMER CARBONATE 0.8 GM POWD.PACK GT SCH ×3 (07:48→18:07)
[2017-10-19] MEDS: VIT B CMPLX 3/FA/VIT C/BIOTIN 1 TAB TABLET PO SCH (08:23)
[2017-10-19] MEDS: CLOPIDOGREL BISULFATE 75 MG TABLET PO SCH (08:23)
[2017-10-19] MEDS: GUAIFENESIN LA 600 MG TABLET.SA PO SCH ×2 (08:23→21:08)
[2017-10-19] MEDS: ASPIRIN 325 MG TABLET PO SCH (08:23)
[2017-10-19] MEDS: methylPREDNISolone SOD SUCC 125 MG/2ML VIAL IV SCH (08:24)
[2017-10-19] MEDS ORDERED: IV NS 0.9% 1,000 ML BAG IV STA (10:25)
--- NOTE | 2017-10-19 10:29 | NUR ---
COLLECTIONS AGENT 500 CC NS BOLUS INITIATED TO BE INFUSED OVER 2 HOURS PER PRINCIPAL EMBEDDED SOFTWARE ENGINEER ORDER.
[2017-10-19 11:58] LABS: ALBUMIN 4.2 g/dL (3.4-5.0)
--- NOTE | 2017-10-19 14:58 | NUR ---
RETAIL SEASONAL SPECIALIST PATIENT NOTED TO ASLEEP AND RESTING COMFORTABLY. ATIVAN DOSE HELD THAT WAS RECOMMENDED BY LABORER CARPENTRY DOCK.
--- NOTE | 2017-10-19 19:12 | NUR ---
COMBINATION MACHINE TOOL SETTER CALLED AND LEFT A MESSAGE WITH DR. PHILIPPE REGARDING PICC LINE PLACEMENT. AWAITING REPLY. HD CATH IN USE FOR LEVOPHED INFUSION DUE TO HYPOTENSION
[2017-10-19] MEDS: NOREPINEPHRINE 16 MG in IV D5W 500 ML IV PRN (19:18)
--- NOTE | 2017-10-19 19:45 | NUR ---
ICU/CERTIFIED HAND THERAPIST RECEIVED REPORT FROM DAY NURSE, PT APPEARS TO BE ALERT X 2. PT ALSO LEVO TO KEEP BP ABOVE 90. PT IS A FEEDER, TOLERATING MEALS WELL. PT HAS NO F/C, ANURIC PT HAS LEFT SUBCLAVIAN HD CATH. THERE IS NO SKIN ISSUES ADDRESSED ON FLOW SHEET. PT WAS TURNED AND REPOSITIONED FOR COMFORT AND CARE. WILL CONTINUE TO MONITOR THIS PT.
[2017-10-19] MEDS: INSULIN GLARGINE, 100 UNIT/ML CARTRIDGE SQ SCH (21:29)
--- NOTE | 2017-10-19 23:08 | NUR ---
ICU/FORENSIC PSYCHOLOGIST LEVO DOUBLE CONCENTRATION WAS INCREASED TO 6 MCG FROM 4 BY CHARGE NURSE DUE TO LOW BP OF 77/48, WILL CONTINUE TO MONITOR THE PT'S BP.
[2017-10-20] VITALS (92 sets, daily range): BP systolic 58–127; BP diastolic 19–95
[2017-10-20] MEDS: IPRATROPIUM NEB FS 0.5 MG/2.5 ML AMPUL.NEB NEB SCH ×4 (01:53→19:34)
[2017-10-20] MEDS: ALBUTEROL FS 2.5 MG/0.5 ML VIAL.NEB NEB SCH ×4 (01:53→19:34)
--- NOTE | 2017-10-20 02:30 | NUR ---
ICU/STUDENT OUTREACH COORDINATOR AM CARE ALONG WITH ORAL CARE GIVEN TO THIS PT, PT WAS A LITTLE SHORT OF BREATH INCREASED THE OXYGEN TO 4 LITERS FROM 3 LITERS DUE TO PT'S SATURATION IN THE 80'S. PT WAS TURNED AND REPOSITIONED FOR COMFORT AND CARE.
--- NOTE | 2017-10-20 04:20 | NUR ---
ICU/PLUG MAKING OPERATOR LEVO DOUBLE CONCENTRATION WAS INCREASED TO 8 MCG FROM 6 BY CHARGE NURSE DUE TO LOW BP OF 89/449, WILL CONTINUE TO MONITOR THE PT'S BP.PT WAS THEN TURNED AND REPOSITIONED FOR COMFORT AND CARE.
[2017-10-20 04:41] LABS: BASOPHILS # (AUTO) 0.1 /CMM (0.0-0.2); BASOPHILS % (AUTO) 0.3 % (0.0-2.0); EOSINOPHILS % (AUTO) 1.3 % (0.0-6.0); HEMATOCRIT 32 % (33-45); HEMOGLOBIN 10.3 g/dL (11.5-14.8); LYMPHOCYTES # (AUTO) 2.5 /CMM (0.8-4.8); LYMPHOCYTES % (AUTO) 11.2 % (20.0-44.0); MEAN CORPUSCULAR HGB CONC 32 g/dl (31.0-36.0); MEAN CORPUSCULAR VOLUME 87 fL (82-100); MONOCYTES # (AUTO) 1.2 /CMM (0.1-1.30); MONOCYTES % (AUTO) 5.5 % (2.0-12.0); NEUTROPHILS # (AUTO) 18.4 /CMM (1.8-8.9); NEUTROPHILS % (AUTO) 81.7 % (43.0-81.0); PLATELET COUNT (AUTO) 244 /CMM (150-450); RDW COEFFICIENT OF VARIATION 16.3 (11.5-15.0); RED BLOOD CELL COUNT(AUTO) 3.68 MIL/uL (4.0-5.2); WHITE BLOOD COUNT (AUTO) 22.5 K/uL (4.3-11.0)
[2017-10-20 05:04] LABS: CALCIUM, SERUM 9.1 mg/dL (8.5-10.1); CARBON DIOXIDE 21 mmol/L (21-32); CHLORIDE 97 mmol/L (98-107); GLUCOSE 165 mg/dL (74-106); MAGNESIUM 2.6 mg/dL (1.8-2.4); PHOSPHORUS 6.2 mg/dL (2.5-4.9); POTASSIUM 4.9 mmol/L (3.5-5.1); SODIUM SERUM 135 mmol/L (136-145)
[2017-10-20 05:05] LABS: UREA NITROGEN, BLOOD 109 mg/dL (7-18)
--- NOTE | 2017-10-20 05:05 | NUR ---
ICU/SIMULATION DEVELOPER AM LABS WERE DONE ON THIS PT, PT IS A DIFFICULT STICK THERE IS NO LINE AWAIT TODAY FOR SOMEONE TO PLACE LINE.
--- NOTE | 2017-10-20 07:30 | NUR ---
OBSTETRIC ASSISTANT RECEIVED PATIENT AWAKE LYING ON BED ALERT AWAKE ORIENTED X 3 AFEBRILE MONITORED BLOOD SUGAR BEFORE MEAL ON LEVOPHED DRIP TITRATING ACCORDINGLY DIALYSIS PATIENT MONITORED CLOSELY
[2017-10-20] MEDS: ACETYLCYSTEINE 20% SOLN 800 MG/4 ML VIAL NEB SCH ×3 (07:47→23:10)
[2017-10-20] MEDS: SEVELAMER CARBONATE 0.8 GM POWD.PACK GT SCH ×3 (08:00→17:12)
--- NOTE | 2017-10-20 08:00 | NUR ---
PROGRAM CONSULTANT ON DIALYSIS, MONITORED CLOSELY
[2017-10-20] MEDS: PANTOPRAZOLE 40 MG TABLET.DR PO SCH (08:01)
[2017-10-20] MEDS: BLOOD SUGAR DIAGNOSTIC 1 EACH STRIP VI SCH ×4 (08:01→21:08)
[2017-10-20] MEDS: CLOPIDOGREL BISULFATE 75 MG TABLET PO SCH (08:04)
[2017-10-20] MEDS: GUAIFENESIN LA 600 MG TABLET.SA PO SCH ×2 (08:04→21:01)
[2017-10-20] MEDS: VIT B CMPLX 3/FA/VIT C/BIOTIN 1 TAB TABLET PO SCH (08:04)
[2017-10-20] MEDS: ASPIRIN 325 MG TABLET PO SCH (08:04)
[2017-10-20] MEDS: methylPREDNISolone SOD SUCC 125 MG/2ML VIAL IV SCH (08:05)
[2017-10-20 08:21] LABS: BILIRUBIN,DIRECT 0.1 mg/dL (0.0-0.2)
[2017-10-20] MEDS: INSULIN REGULAR, HUMAN 100 UNIT/ML 3 ML VIAL SQ PRN ×3 (08:38→17:22)
[2017-10-20] MEDS: LEVOFLOXACIN (250MG) 250 MG TABLET PO SCH (11:08)
--- NOTE | 2017-10-20 15:19 | NUR ---
PLACEMENT SPECIALIST PATIENT IS CURRENTLY ON 12 MCG/MIN LEVOPHED FOR BP SUPPORT. RN INFORMED THE FACILITY SUPERVISOR THAT WE ARE CURRENTLY USING THE RYDER CATH FOR LEVOPHED INFUSION DUE TO UNAVAILABILITY OF OTHER CENTRAL ACCESS. RN INFORMED FACILITY SUPERVISOR THAT ALAN PHILIPPE DNP WAS UNABLE TO PLACE A PICC LINE DUE TO AN OBSTRUCTION. FACILITY SUPERVISOR ALSO MADE AWARE THAT PATIENT DOES NOT WANT ANY MORE ATTEMPTS ON PLACING FEMORAL CENTRAL CATHETERS AND ALAN PHILIPPE TO PLACE A FEMORAL TLC TOMORROW. RN ALSO CALLED AND INFORMED ALAN PHILIPPE DNP TO INFORM DR. TEMPLETON REGARDING THE NEED TO USE THE RYDER CATH AT THIS TIME FOR LEVOPHED INFUSION SINCE THERE'S NO OTHER CENTRAL VENOUS ACCESS ON THIS PATIENT.
[2017-10-20] MEDS: LORAZEPAM 1 MG TABLET PO PRN (16:20)
--- NOTE | 2017-10-20 16:53 | NUR ---
SHUTTLECOCK FEATHER TRIMMER HOSPITALIST IS AWARE THAT PICC LINE WAS NOT INSERTED DUE TO OBSTRUCTION WILL BE DOING CENTRAL LINE INSERTION JEFF PER DR. PHILIPPE
[2017-10-20] MEDS: NOREPINEPHRINE 16 MG in IV D5W 500 ML IV PRN (18:11)
--- NOTE | 2017-10-20 19:30 | NUR ---
BUSINESS OWNER/ENGINEER INITIAL NOTE RECEIVED PATIENT AWAKE A/OX2, ABLE TO MAKE NEEDS KNOWN. DENIES PAIN OR DISCOMFORT. DENIES SOB. SKIN WARM AND DRY TO TOUCH. SR ON MONITOR. WITH LCW HD CATH LEVO RUNNING AT 6MCG/MIN. HOB ELEVATED. SIDE RAILS UP AND LOCKED. BED KEPT AT LOWEST POSITION. WILL CONTINUE TO MONITOR.
[2017-10-20] MEDS: ACETAMINOPHEN 325 MG TABLET PO PRN (21:01)
[2017-10-20] MEDS: INSULIN GLARGINE, 100 UNIT/ML CARTRIDGE SQ SCH (21:07)
[2017-10-20] MEDS: *INSULIN REGULAR(HUMULIN R)HUM 100 UNIT/ML VIAL SQ PRN (21:08)
[2017-10-21] VITALS (85 sets, daily range): BP systolic 57–131; BP diastolic 27–85
[2017-10-21] MEDS: IPRATROPIUM NEB FS 0.5 MG/2.5 ML AMPUL.NEB NEB SCH ×4 (01:21→19:46)
[2017-10-21] MEDS: ALBUTEROL FS 2.5 MG/0.5 ML VIAL.NEB NEB SCH ×4 (01:21→19:46)
[2017-10-21] MEDS: LORAZEPAM 1 MG TABLET PO PRN (02:38)
--- NOTE | 2017-10-21 02:38 | NUR ---
CLAMP JIG ASSEMBLER NOTE PATIENT RESTLESS, AWAKE AND ALERT, C/O FEELING ANXIOUS, PRN ATIVAN GIVEN. WILL CONTINUE TO MONITOR.
--- NOTE | 2017-10-21 03:30 | NUR ---
4TH GRADE MATH TEACHER NOTE PATIENT SLEEPING COMFORTABLY, MORE CALM, AROUSABLE. WILL CONTINUE TO MONITOR.
[2017-10-21 05:06] LABS: BASOPHILS % (AUTO) 0.2 % (0.0-2.0); EOSINOPHILS % (AUTO) 0.9 % (0.0-6.0); HEMATOCRIT 32 % (33-45); HEMOGLOBIN 10.3 g/dL (11.5-14.8); LYMPHOCYTES # (AUTO) 2.4 /CMM (0.8-4.8); LYMPHOCYTES % (AUTO) 10.2 % (20.0-44.0); MEAN CORPUSCULAR HGB CONC 33 g/dl (31.0-36.0); MEAN CORPUSCULAR VOLUME 86 fL (82-100); MONOCYTES # (AUTO) 1.6 /CMM (0.1-1.30); NEUTROPHILS % (AUTO) 81.7 % (43.0-81.0); PLATELET COUNT (AUTO) 227 /CMM (150-450); RDW COEFFICIENT OF VARIATION 16.6 (11.5-15.0); RED BLOOD CELL COUNT(AUTO) 3.66 MIL/uL (4.0-5.2); WHITE BLOOD COUNT (AUTO) 23.3 K/uL (4.3-11.0)
[2017-10-21 05:41] LABS: CALCIUM, SERUM 9.2 mg/dL (8.5-10.1); CARBON DIOXIDE 20 mmol/L (21-32); CHLORIDE 98 mmol/L (98-107); GLUCOSE 98 mg/dL (74-106); MAGNESIUM 2.6 mg/dL (1.8-2.4); PHOSPHORUS 6.7 mg/dL (2.5-4.9); SODIUM SERUM 136 mmol/L (136-145)
[2017-10-21 05:42] LABS: LYMPHOCYTES % (MANUAL) 7 % (16-48)
[2017-10-21 05:43] LABS: METAMYELOCYTES % 1 % (0-0); MONOCYTES % (MANUAL) 5 % (0-11.0); NEUTROPHILS % (MANUAL) 87 (42-76)
[2017-10-21 05:55] LABS: CREATININE 8.3 mg/dL (0.6-1.3); UREA NITROGEN, BLOOD 122 mg/dL (7-18)
--- NOTE | 2017-10-21 07:17 | NUR ---
SCRAP HANDLER CLOSING NOTE NO SIGNIFICANT CHANGES OVERNIGHT. ALL NEEDS ANTICIPATED AND MET. ALL DUE MEDS GIVEN. NO RESPIRATORY DISTRESS NOTED ON 4LPMO2 VIA NC. SKIN WARM AND DRY TO TOUCH. WITH LEVO AT 5MCG/MIN. KEPT CLEAN AND DRY. TURNED AND REPOSITIONED Q2 AND PRN. HOB ELEVATED. SIDE RAILS AND LOCKED. BED KEPT AT LOWEST POSITION. CALL LIGHT KEPT WITHIN EASY REACH. CONTINUITY OF CARE ENDORSED TO AM NURSE.
[2017-10-21] MEDS: ACETYLCYSTEINE 20% SOLN 800 MG/4 ML VIAL NEB SCH ×3 (07:33→22:57)
--- NOTE | 2017-10-21 07:36 | NUR ---
BACKUP ADMINISTRATOR RECEIVED PATIENT FROM THE PREVIOUS SHIFT. PATIENT IS IN BED. RESTING COMFORTABLY. NO ACUTE DISTRESS NOTED. EVEN AND NON LABORED BREATHING PATTERN. LEVOPHED GTT AT 7 MCG. AFEBRILE. STABLE VITAL SINGS. WILL CONTINUE TO MONITOR AND PROVIDE CARE.
[2017-10-21] MEDS: ASPIRIN 325 MG TABLET PO SCH (08:14)
[2017-10-21] MEDS: PANTOPRAZOLE 40 MG TABLET.DR PO SCH (08:14)
[2017-10-21] MEDS: SEVELAMER CARBONATE 0.8 GM POWD.PACK GT SCH ×3 (08:14→16:37)
[2017-10-21] MEDS: GUAIFENESIN LA 600 MG TABLET.SA PO SCH ×2 (08:14→21:19)
[2017-10-21] MEDS: VIT B CMPLX 3/FA/VIT C/BIOTIN 1 TAB TABLET PO SCH (08:14)
[2017-10-21] MEDS: methylPREDNISolone SOD SUCC 125 MG/2ML VIAL IV SCH (08:15)
[2017-10-21] MEDS: CLOPIDOGREL BISULFATE 75 MG TABLET PO SCH (08:15)
[2017-10-21] MEDS: BLOOD SUGAR DIAGNOSTIC 1 EACH STRIP VI SCH ×4 (08:15→21:50)
--- NOTE | 2017-10-21 08:27 | NUR ---
WOUND CARE CONSULT: PT PRESENTS WITH EXCORIATED AREA TO RT BUTTOCK. PT IS INCONTINENT. PT TENDS TO CROSS HER ANKLES. NURSING STAFF TO DISCOURAGE ANKLE CROSSING. DISCUSSED SKIN PROTECTION AND CARE WITH NURSING STAFF. PT ON FLORES ISOFLEX LOW AIRLOSS BED. ALL SKIN PROTECTION MEASURES IN PLACE. WILL SEE PRN. PRESSLEY IN AGREEMENT WITH PLAN OF CARE. Addendum: 10/21/17 at 0830 by RUI GODOY WNDNU Amended: Links added.
[2017-10-21] MEDS ORDERED: IV NS 0.9% 1,000 ML BAG IV STA (09:27)
[2017-10-21] MEDS ORDERED: HEPARIN SODIUM, PORCINE 5000 UNITS/1 ML VIAL IVF STA (10:46)
[2017-10-21] MEDS: INSULIN REGULAR, HUMAN 100 UNIT/ML 3 ML VIAL SQ PRN (11:30)
[2017-10-21] MEDS: HYDROCORTISONE SOD SUCCINATE 100 MG/2 ML VIAL IV SCH ×2 (13:34→16:37)
--- NOTE | 2017-10-21 16:27 | NUR ---
PATIENT DAY COORDINATOR PATIENT NOTED TO HAVE SOME BLEEDING FROM THE RIGHT GROIN TLC SITE (ABOUT 5 ML). RN APPLIED DIRECTED PRESSURE ON THE SITE FOR 15 MIN. BLEEDING NOTED TO HAVE STOPPED. RN CHANGED THE CENTRAL LINE DRESSING.
[2017-10-21] MEDS: *INSULIN REGULAR(HUMULIN R)HUM 100 UNIT/ML VIAL SQ PRN ×2 (16:35→21:49)
[2017-10-21] MEDS: HYDROCODONE/APAP 5/325MG 1 EACH TABLET PO PRN (16:38)
[2017-10-21] MEDS: NOREPINEPHRINE 16 MG in IV D5W 500 ML IV PRN (16:46)
--- NOTE | 2017-10-21 19:30 | NUR ---
ICU/RN RECEIVED PT AWAKE ALERT OX3.ON N/C AT 2LPM.DENIES SHORTNESS OF BREATH,SAT 94%.
[2017-10-21] MEDS: INSULIN GLARGINE, 100 UNIT/ML CARTRIDGE SQ SCH (21:41)
--- NOTE | 2017-10-21 23:00 | NUR ---
ICU/RN SLEEPING,RESPIRATIONS REGULAR AND EVEN.MONITOR SHOWS SR-SINUS TACH WITHOUT ECTOPICS.REMAINS ON LEVOPHED DRIP AT 3MCG/KG/MIN. W/IEP=[id number]. Addendum: 10/22/17 at 0206 by BLAKE BARAHONA RN 3MCG/MIN,INSTEAD OF MCG/KG/MIN
[2017-10-22] VITALS (98 sets, daily range): BP systolic 61–189; BP diastolic 35–110
[2017-10-22] MEDS: IPRATROPIUM NEB FS 0.5 MG/2.5 ML AMPUL.NEB NEB SCH ×4 (01:16→19:56)
[2017-10-22] MEDS: ALBUTEROL FS 2.5 MG/0.5 ML VIAL.NEB NEB SCH ×5 (01:16→19:56)
--- NOTE | 2017-10-22 02:00 | NUR ---
ICU/RN YCS=[id number],LEVOPHED DECREASED TO 2MCGMIN
--- NOTE | 2017-10-22 05:00 | NUR ---
ICU/RN PT REMAINS ON LEVOPHED DRIP,ON 3MCG/MIN.PT AWAKE ALERT OX3.PULSE OXIMETRY ON MONITOR MALFUNCTIONED,OXIMETRY AT BEDSIDE.PT SAT. BETWEEN 92-96%,DENIES PAIN OR DISCOMFORT,INCONTINENT OF URINE X2,CLEANSED,DIAPER CHANGED AND BED BATH GIVEN.SUCTIONED ORALLY FOR SCANT WHITE SECRETIONS,PT W/ PRODUCTIVE COUGH AND UNABLE TO COUGH UP SECRETIONS.
[2017-10-22 05:28] LABS: EOSINOPHILS % (AUTO) 0.1 % (0.0-6.0); HEMATOCRIT 32 % (33-45); HEMOGLOBIN 10.6 g/dL (11.5-14.8); LYMPHOCYTES # (AUTO) 0.5 /CMM (0.8-4.8); LYMPHOCYTES % (AUTO) 2.1 % (20.0-44.0); MEAN CORPUSCULAR HGB CONC 33 g/dl (31.0-36.0); MEAN CORPUSCULAR VOLUME 85 fL (82-100); MONOCYTES # (AUTO) 0.6 /CMM (0.1-1.30); MONOCYTES % (AUTO) 2.4 % (2.0-12.0); NEUTROPHILS % (AUTO) 95.4 % (43.0-81.0); PLATELET COUNT (AUTO) 159 /CMM (150-450); RDW COEFFICIENT OF VARIATION 16.1 (11.5-15.0); RED BLOOD CELL COUNT(AUTO) 3.74 MIL/uL (4.0-5.2); WHITE BLOOD COUNT (AUTO) 24.1 K/uL (4.3-11.0)
[2017-10-22 05:52] LABS: CALCIUM, SERUM 9.1 mg/dL (8.5-10.1); CARBON DIOXIDE 30 mmol/L (21-32); CHLORIDE 95 mmol/L (98-107); CREATININE 6.2 mg/dL (0.6-1.3); GLUCOSE 111 mg/dL (74-106); MAGNESIUM 2.2 mg/dL (1.8-2.4); PHOSPHORUS 5.1 mg/dL (2.5-4.9); POTASSIUM 4.3 mmol/L (3.5-5.1); SODIUM SERUM 139 mmol/L (136-145); UREA NITROGEN, BLOOD 78 mg/dL (7-18)
[2017-10-22 06:01] LABS: BAND % (MANUAL) 3 % (0.0-5.0); LYMPHOCYTES % (MANUAL) 1 % (16-48); MONOCYTES % (MANUAL) 2 % (0-11.0); NEUTROPHILS % (MANUAL) 94 (42-76)
[2017-10-22] MEDS: ACETYLCYSTEINE 20% SOLN 800 MG/4 ML VIAL NEB SCH ×2 (07:20→14:59)
--- NOTE | 2017-10-22 07:35 | NUR ---
ICU/RN INITIAL NOTES,AM RECEIVED REPORT FROM NIGHT NURSE. PT RESTING IN BED, FOLLOWS SIMPLE COMMANDS ALERT, AWAKE. (AAO2-3). PT ON 4L NASAL CANULA, NO ACUTE DISTRESS NOTED. ON TELE, SINUS TACH. PT ON DIAPER, MINIMAL URINE OUTPUT NOTED. RIGHT FEMORAL TLC PATENT AND INTACT, LOW DOSE LEVO INFUSING FOR BP SUPPORT, 3 MCG/KG/MIN. PIV PATENT AND INTACT, NO S/S OF INFECTION OR INFILTRATION NOTED. PT ON PUREE DIET. WOUND CONSULT PENDING. ALL NEEDS WILL BE ATTENDED TO, SAFETY MEASURES TAKEN, BED IN LOW POSITION, SIDE RAILS UP, CALL LIGHT WITHIN REACH.
[2017-10-22] MEDS: BLOOD SUGAR DIAGNOSTIC 1 EACH STRIP VI SCH ×2 (07:44→11:50)
[2017-10-22] MEDS: ACETAMINOPHEN 325 MG TABLET PO PRN (07:59)
[2017-10-22] MEDS: PANTOPRAZOLE 40 MG TABLET.DR PO SCH (07:59)
[2017-10-22] MEDS: SEVELAMER CARBONATE 0.8 GM POWD.PACK GT SCH ×3 (07:59→17:32)
[2017-10-22] MEDS: GUAIFENESIN LA 600 MG TABLET.SA PO SCH ×2 (08:02→20:17)
[2017-10-22] MEDS: HYDROCORTISONE SOD SUCCINATE 100 MG/2 ML VIAL IV SCH ×3 (08:02→18:42)
[2017-10-22] MEDS: ASPIRIN 325 MG TABLET PO SCH (08:02)
[2017-10-22] MEDS: CLOPIDOGREL BISULFATE 75 MG TABLET PO SCH (08:02)
[2017-10-22] MEDS: VIT B CMPLX 3/FA/VIT C/BIOTIN 1 TAB TABLET PO SCH (08:02)
--- NOTE | 2017-10-22 09:01 | NUR ---
ICU/RN: AT BEDSIDE. ORDERS FOR KUB RECEIVED, WILL FOLLOW THROUGH
--- NOTE | 2017-10-22 10:30 | NUR ---
ICU/RN: HD STARTED, VSS, WILL CONTINUE TO MONITOR
[2017-10-22] MEDS: LEVOFLOXACIN (250MG) 250 MG TABLET PO SCH (11:13)
[2017-10-22 11:36] LABS: ABG OXYGEN SATURATION 94.7 % (92.0-98.5); ABG PCO2 43.2 mmHg (35.0-45.0); ABG PH 7.307 (7.350-7.450); ABG PO2 88.9 mmHg (75.0-100.0); AaDO2 182.8 mmHg; MetHb 0.4 % (0.0-1.5); O2Hb 94.3 % (94.0-97.0); SITE, ABG Right Radial; VENT MODE, BG N/C
--- NOTE | 2017-10-22 11:42 | NUR ---
ICU/RN: DURING HD PT STARTED TO CHAZ DOWN TO 40S AND BECAME UNRESPONSIVE. HD STOPPED, STAT ORDER FOR ABG PLACED. WITHIN SECONDS PT WAS AWAKE AND BACK TO BASELINE. WILL CONTINUE TO MONITOR AND ASSESS.
[2017-10-22] MEDS: INSULIN REGULAR, HUMAN 100 UNIT/ML 3 ML VIAL SQ PRN (11:52)
--- NOTE | 2017-10-22 13:48 | NUR ---
ICU/RN: REPORT ENDORSED TO BING DEJESUS. PT RESTING IN BED COMFORTABLY. BACK TO BASELINE. ALERT, FOLLOWS COMMANDS. ON NASAL CANULA, NO DISTRESS. ALL NEEDS ATTENDED TO, SAFETY MEASURES TAKEN. LOW DOSE LEVO INFUSING FOR BP SUPPORT.
--- NOTE | 2017-10-22 17:44 | NUR ---
BS 516, REPEATED 526. LAB NOTIFIED FOR STAT DRAW, DR NATHALIA ZHANG.
[2017-10-22] MEDS ORDERED: *INSULIN REGULAR(HUMULIN R)HUM 100 UNIT/ML VIAL SQ PRN (18:00)
[2017-10-22] MEDS ORDERED: DEXTROSE 50%-WATER 50 ML DISP.SYRIN IV PRN (18:00)
[2017-10-22] MEDS ORDERED: INSULIN REGULAR, HUMAN 100 UNIT/ML 3 ML VIAL SQ PRN (18:00)
[2017-10-22] MEDS ORDERED: INSULIN REGULAR, HUMAN 100 UNIT/ML 10 ML VIAL SQ ONE (18:00)
--- NOTE | 2017-10-22 18:20 | NUR ---
glucose lab sent, insulin reg. 20 units sq administered.
--- NOTE | 2017-10-22 19:00 | NUR ---
pt assisted with dinner. full bed.bath /skin care. Dr. Porter paged to clarify misc. order.
--- NOTE | 2017-10-22 19:59 | NUR ---
pt has no ngt, pt can swallow and is on puree diet, [facility] [place]gt to suction and start pt on d5ns @ 50 ml/hr, but blood glucose is over 500 and pt has no ngt, i called pascual stark to clarify, we were unable to clarify, will follow up in AM. also bp is now elevated over 180s, hydralazine 10 mg ordered q4 prn for sbp > 165. will carry out
--- NOTE | 2017-10-22 20:00 | NUR ---
VINYL WELDER AND FABRICATOR - NOTES - RECEIVED PT RESTING IN BED, FOLLOWS SIMPLE COMMANDS ALERT, AWAKE AOX1. PT ON 6L NASAL CANULA, NO ACUTE DISTRESS NOTED. ON TELE, SINUS RHYTHM. PT ON DIAPER. RIGHT FEMORAL TLC PATENT AND INTACT, NO S/S OF INFECTION OR INFILTRATION NOTED. PT ON PUREE DIET. WOUND CONSULT PENDING. ALL NEEDS WILL BE ATTENDED TO, SAFETY MEASURES TAKEN, BED IN LOW POSITION, SIDE RAILS UP, CALL LIGHT WITHIN REACH.
[2017-10-22] MEDS: hydrALAZINE HCL IV 20 MG VIAL IV PRN (20:17)
--- NOTE | 2017-10-22 20:38 | NUR ---
after breathing tx and hydralazine pt starts desatting to 88%, pt placed on NRB @ 15 lpm o2sat increased to 96%, rr 30s, pascual stark notified, will continue to monitor
[2017-10-22] MEDS: HYDROCODONE/APAP 5/325MG 1 EACH TABLET PO PRN (21:01)
[2017-10-22] MEDS ORDERED: INSULIN GLARGINE, 100 UNIT/ML CARTRIDGE SQ ONE (21:45)
[2017-10-22] MEDS: LORAZEPAM 1 MG TABLET PO PRN (22:25)
--- NOTE | 2017-10-22 22:26 | NUR ---
unable to check blood glucose because accucheck machines not working, help desk called, they said they are working on the software part of accucheck, and lab is working on figuring out how to do manual check with the machine. nursing supervisor mechanic boilermaking notified, will continue to monitor
--- NOTE | 2017-10-22 22:27 | NUR ---
pt very anxious, moving from side to side, she requested ativan for agitation. will continue to monitor
--- NOTE | 2017-10-22 23:12 | NUR ---
still unable to use accucheck, glucose was drawn via right fem central line, flushed twice with 10 ml ns syringe and 10 ml blood wasted, blood glucose 445, will redraw peripherally to verify glucose before treating
[2017-10-22] MEDS: INSULIN GLARGINE, 100 UNIT/ML CARTRIDGE SQ SCH (23:59)
[2017-10-23] VITALS (59 sets, daily range): BP systolic 61–171; BP diastolic 38–87
[2017-10-23] MEDS: ACETYLCYSTEINE 20% SOLN 800 MG/4 ML VIAL NEB SCH ×3 (00:25→13:24)
[2017-10-23] MEDS: hydrALAZINE HCL IV 20 MG VIAL IV PRN (00:39)
[2017-10-23] MEDS ORDERED: INSULIN REGULAR, HUMAN 100 UNIT/ML 10 ML VIAL SQ ONE (01:00)
[2017-10-23] MEDS: ALBUTEROL FS 2.5 MG/0.5 ML VIAL.NEB NEB SCH ×3 (02:05→13:24)
[2017-10-23] MEDS: IPRATROPIUM NEB FS 0.5 MG/2.5 ML AMPUL.NEB NEB SCH ×3 (02:05→13:24)
[2017-10-23] MEDS: HYDROCODONE/APAP 5/325MG 1 EACH TABLET PO PRN (02:07)
[2017-10-23] MEDS: LORAZEPAM 1 MG TABLET PO PRN (04:25)
[2017-10-23 04:31] LABS: BASOPHILS % (AUTO) 0.2 % (0.0-2.0); HEMATOCRIT 32 % (33-45); HEMOGLOBIN 10.6 g/dL (11.5-14.8); LYMPHOCYTES # (AUTO) 0.4 /CMM (0.8-4.8); LYMPHOCYTES % (AUTO) 1.6 % (20.0-44.0); MEAN CORPUSCULAR HGB CONC 34 g/dl (31.0-36.0); MEAN CORPUSCULAR VOLUME 85 fL (82-100); MONOCYTES # (AUTO) 0.4 /CMM (0.1-1.30); MONOCYTES % (AUTO) 1.6 % (2.0-12.0); NEUTROPHILS # (AUTO) 22.8 /CMM (1.8-8.9); NEUTROPHILS % (AUTO) 96.6 % (43.0-81.0); PLATELET COUNT (AUTO) 129 /CMM (150-450); RDW COEFFICIENT OF VARIATION 16.4 (11.5-15.0); RED BLOOD CELL COUNT(AUTO) 3.71 MIL/uL (4.0-5.2); WHITE BLOOD COUNT (AUTO) 23.6 K/uL (4.3-11.0)
[2017-10-23 04:45] LABS: CALCIUM, SERUM 9.6 mg/dL (8.5-10.1); CARBON DIOXIDE 22 mmol/L (21-32); CHLORIDE 95 mmol/L (98-107); CREATININE 6.8 mg/dL (0.6-1.3); GLUCOSE 185 mg/dL (74-106); MAGNESIUM 2.1 mg/dL (1.8-2.4); POTASSIUM 4.9 mmol/L (3.5-5.1); SODIUM SERUM 137 mmol/L (136-145)
[2017-10-23 04:59] LABS: UREA NITROGEN, BLOOD 86 mg/dL (7-18)
[2017-10-23 05:32] LABS: BAND % (MANUAL) 3 % (0.0-5.0); LYMPHOCYTES % (MANUAL) 4 % (16-48); MONOCYTES % (MANUAL) 2 % (0-11.0); NEUTROPHILS % (MANUAL) 91 (42-76)
--- NOTE | 2017-10-23 06:11 | NUR ---
SP02 ON THE MONITOR STOPPED READING, MESSAGE SAYS "SP02: COMMUNICATION ERROR" PT CONNECTED TO PORTABLE 02SAT MONITOR, ALSO NOT READING O2SAT TRIED ON BOTH HANDS AND LEFT EAR, STILL NO O2SAT READING, PT LOOKS COMFORTABLE AND NOT IN RESPIRATORY DISTRESS, BUT WE WILL DRAW STAT ABG TO VERIFY OXYGENATION
[2017-10-23] MEDS: PANTOPRAZOLE 40 MG TABLET.DR PO SCH ×2 (07:30→08:31)
--- NOTE | 2017-10-23 07:53 | NUR ---
ICU/RN INITIAL NOTES,AM RECEIVED REPORT FROM NIGHT NURSE. PT RESTING IN BED, FOLLOWS SIMPLE COMMANDS, AWAKE. (AAO1-2). PT ON 6L NASAL CANULA, NO ACUTE DISTRESS NOTED. ON TELE, SINUS TACH. PT ON DIAPER, MINIMAL URINE OUTPUT NOTED. RIGHT FEMORAL TLC PATENT AND INTACT, PIV PATENT AND INTACT, NO S/S OF INFECTION OR INFILTRATION NOTED. PT ON PUREE DIET. ALL NEEDS WILL BE ATTENDED TO, SAFETY MEASURES TAKEN, BED IN LOW POSITION, SIDE RAILS UP, CALL LIGHT WITHIN REACH.
[2017-10-23] MEDS: SEVELAMER CARBONATE 0.8 GM POWD.PACK GT SCH ×3 (08:00→12:48)
[2017-10-23] MEDS: BLOOD SUGAR DIAGNOSTIC 1 EACH STRIP IN SCH ×3 (08:31→11:48)
[2017-10-23] MEDS: HYDROCORTISONE SOD SUCCINATE 100 MG/2 ML VIAL IV SCH ×2 (08:31→12:48)
[2017-10-23] MEDS: VIT B CMPLX 3/FA/VIT C/BIOTIN 1 TAB TABLET PO SCH ×2 (08:31→09:00)
[2017-10-23] MEDS: GUAIFENESIN LA 600 MG TABLET.SA PO SCH ×2 (08:31→09:00)
[2017-10-23] MEDS: CLOPIDOGREL BISULFATE 75 MG TABLET PO SCH ×2 (08:31→11:37)
[2017-10-23] MEDS: ASPIRIN 325 MG TABLET PO SCH ×2 (08:31→09:00)
[2017-10-23 08:36] LABS: ABG BASE EXCESS -6.3 mmol/L; ABG PH 7.529 (7.350-7.450); ABG PO2 141.1 mmHg (75.0-100.0); AaDO2 125.7 mmHg; SITE, ABG Left Radial; VENT MODE, BG 5L N/C
[2017-10-23] MEDS: NOREPINEPHRINE 16 MG in IV D5W 500 ML IV PRN (08:58)
--- NOTE | 2017-10-23 09:00 | NUR ---
ICU/RN: RT PATIENT WAS ORALLY INTUBATED AFTER BECOMING NON RESPONSIVE AND HAVING DIFFICULTY BREATHING. AT BEDSIDE, PT WAS INTUBATED BY ER ETT 7.5, 22CM MID LIP. BILAT CHEST RISE NOTED. SETTINGS PRESCRIBED BY DR. ZELAYA. AC14, 500, 100% NO PEEP. AMBU BAG AT [facility]. ABG DONE, WILL REPEAT POST INTUBATION. WILL CONTINUE TO MONITOR AND ASSESS.
--- NOTE | 2017-10-23 09:00 | NUR ---
RT PATIENT ORALLY INTUBATED AFTER BECOMING NON RESPONSIVE. ER DOCTOR INTUBATED WITH A 7.5 ETT SECURED AT 22CM MID LIP. BILAT B/S HEARD SLIGHTLY LESS ON THE LEFT LUNG. BILAT CHEST RISE NOTED. POSITIVE CO2 DETECTOR COLOR CHANGE NOTED. PATIENT PLACED ON 840 VENTILATOR WITH SETTINGS GIVEN BY DOCTOR ZELAYA. AC14, 500, 100% NO PEEP. VENT ALARMS CHECKED + AUDIBLE. CUFF PRESSURE BILL CLERK. SX'D WITH NO SECRETIONS. AMBU BAG AT HOB. Addendum: 10/23/17 at 0920 by MAXWELL OLMEDO RT Amended: Links added.
--- NOTE | 2017-10-23 09:10 | NUR ---
ICU/RN: PER ORDERS, OG TUBE INSERTED TO LOW INTERMITTENT SUCTION. COFFEE GROUND DRAINAGE NOTED, NOTIFIED. PT PENDING TO GO TO CT ABDOMEN WHEN STABILIZED (PER PELEG HOLD FOR NOW, PT UNSTABLE). LEVO INFUSING FOR BP SUPPORT. WILL CONTINUE TO MONITOR AND ASSESS.
[2017-10-23] MEDS ORDERED: MEROPENEM 500 MG in IV NS 0.9% 50 ML IV ONE (09:30)
[2017-10-23] MEDS ORDERED: VANCOMYCIN 1 GM in IV NS 0.9% 250 ML IV ONE (09:30)
[2017-10-23] MEDS ORDERED: PROPOFOL 100 ML IV PRN (09:30)
[2017-10-23] MEDS ORDERED: IV NS 0.9% 500 ML IV ONE (09:30)
[2017-10-23 11:10] LABS: ABG BASE EXCESS -10.7 mmol/L; ABG PH 7.301 (7.350-7.450); ABG PO2 43.2 mmHg (75.0-100.0); COHb 0.1 % (0.5-1.5); MetHb 0.5 % (0.0-1.5); O2Hb 67.6 % (94.0-97.0)
[2017-10-23] MEDS ORDERED: ETOMIDATE 2 MG/ML VIAL IV ONE (11:11)
[2017-10-23] MEDS ORDERED: SUCCINYLCHOLINE CHLORIDE 20 MG/ML VIAL IV ONE (11:11)
[2017-10-23] MEDS ORDERED: FEE PK DOSING 1 MIN EA MC ONE (12:46)
[2017-10-23] MEDS ORDERED: VANCOMYCIN 500 MG in IV D5W 100 ML IV PRN (13:00)
[2017-10-23] MEDS ORDERED: LEVOFLOXACIN 500 MG /D5W 100ML 500 MG in PREMIX 1 EA IV SCH (14:00)
--- NOTE | 2017-10-23 14:50 | NUR ---
ICU/RN: PER SISTER (DPOA) REQUEST PT WAS MADE DNR STATUS WITH NO AGGRESSIVE MEASURES. PT CONTINUES ON LEVO FOR BP SUPPORT AND FULL VENTILATOR SUPPORT. INFORMED MD AND RECEIVED TLO ORDER TO PLACE ORDER.
--- NOTE | 2017-10-23 15:10 | NUR ---
ICU/RN: PT BECAME BRADYCARDIC THEN ASYSTOLIC. NO SPONTANEOUS RESPIRATIONS. PUPILS FIXED AND DILATED. PT PRONOUNCED BY MARKING ROOM SUPERVISORBING SANCHEZ. SISTER OF PT AT BEDSIDE. DAUGHTER OF PT WHO LIVES OUT OF STATE NOTIFIED.
--- NOTE | 2017-10-23 15:10 | NUR ---
RT PATIENT WAS PRONOUNCED . FAMILY MEMBER AT BEDSIDE DID NOT WANT CPR OR ANY AGGRESSIVE MEASURES TO BE DONE.
--- NOTE | 2017-10-23 15:10 | NUR ---
RN NOTE PT MADE DNR STATUS BY DPOA. PT BECAME BRADYCARDIC THEN ASYSTOLIC. NO SPONTANEOUS RESPIRATIONS. PUPILS FIXED AND DILATED. PT PRONOUNCED . FAMILY AT BEDSIDE.
--- NOTE | 2017-10-23 15:17 | NUR ---
ICU/RN: [facility] CALLED, BODY RELEASED. REFERENCE NUMBER [id number] SPOKE TO MONA COLIN. FAMILY STILL AT BEDSIDE. ARRANGEMENTS MADE.
--- NOTE | 2017-10-23 16:30 | NUR ---
ICU/RN: POST MORTEM CARE DONE. ALL BELONGINGS SENT WITH PT, FORM FILLED OUT. PT TRANSPORTED TO [facility] WITH SECURITY. FAMILY WILL CONTACT NURSING DIET CLERK WITH PLANS.
== END 2017-10-23 15:10 | disposition expired | DRG 871 ==
LOC: ER 19:34 → ICU 22:05 → TELE1 10-11 10:26 → MEDSG1 10-12 10:52 → MEDSG2 10-13 06:02 → ICU 10-13 10:51 → MEDSG2 10-15 18:38 → TELE 10-15 20:25 → MED 10-16 09:24 → ICU 10-18 16:31
PROVIDERS: ADMIT Internal Medicine; ATTEND Internal Medicine
PROC: 5A09357 Assistance with Respiratory Ventilation, Less than 24 Consecutive Hours, Continuous Positive Airway Pressure (ICD-10-PCS; principal; 2017-10-09)
PROC: 0JHL3XZ Insertion of Tunneled Vascular Access Device into Right Upper Leg Subcutaneous Tissue and Fascia, Percutaneous Approach (ICD-10-PCS; 2017-10-21)
PROC: 06HM33Z Insertion of Infusion Device into Right Femoral Vein, Percutaneous Approach (ICD-10-PCS; 2017-10-21)
PROC: B54BZZA Ultrasonography of Right Lower Extremity Veins, Guidance (ICD-10-PCS; 2017-10-21)
PROC: 5A1935Z Respiratory Ventilation, Less than 24 Consecutive Hours (ICD-10-PCS; 2017-10-23)
PROC: 0BH17EZ Insertion of Endotracheal Airway into Trachea, Via Natural or Artificial Opening (ICD-10-PCS; 2017-10-23)
DX: A41.9 Sepsis, unspecified organism (principal); I21.A1 Myocardial infarction type 2; J96.01 Acute respiratory failure with hypoxia; G93.41 Metabolic encephalopathy; J15.9 Unspecified bacterial pneumonia; R65.21 Severe sepsis with septic shock; N18.6 End stage renal disease; I50.33 Acute on chronic diastolic (congestive) heart failure; E87.3 Alkalosis; I13.2 Hypertensive heart and chronic kidney disease with heart failure and with stage 5 chronic kidney disease, or end stage renal disease; J44.1 Chronic obstructive pulmonary disease with (acute) exacerbation; J98.11 Atelectasis; K56.7 Ileus, unspecified; J44.0 Chronic obstructive pulmonary disease with (acute) lower respiratory infection; E27.40 Unspecified adrenocortical insufficiency; R57.1 Hypovolemic shock; E11.22 Type 2 diabetes mellitus with diabetic chronic kidney disease; E87.5 Hyperkalemia; Z86.73 Personal history of transient ischemic attack (TIA), and cerebral infarction without residual deficits; Z99.2 Dependence on renal dialysis; K21.9 Gastro-esophageal reflux disease without esophagitis; I25.2 Old myocardial infarction; Z88.0 Allergy status to penicillin; F32.9 Major depressive disorder, single episode, unspecified; E78.5 Hyperlipidemia, unspecified; F41.9 Anxiety disorder, unspecified; I25.10 Atherosclerotic heart disease of native coronary artery without angina pectoris; D63.8 Anemia in other chronic diseases classified elsewhere; F09 Unspecified mental disorder due to known physiological condition; M85.9 Disorder of bone density and structure, unspecified; E66.01 Morbid (severe) obesity due to excess calories; Z68.26 Body mass index [BMI] 26.0-26.9, adult; Z66 Do not resuscitate
CPT/HCPCS: 31720; 36415; 36600; 71045-TC; 74018; 80048-TC; 80053-TC; 80061-TC; 81000-TC; 82040-TC; 82247-TC; 82248-TC; 82272-TC; 82306; 82533; 82728-TC; 82803-TC; 82947-TC; 82962-TC; 83540-TC; 83605-TC; 83735-TC; 83880; 84100-TC; 84439-TC; 84443-TC; 84484-TC; 85025-TC; 85730-TC; 87040-TC; 87081-TC; 87086-TC; 90935-TC; 92611-TC; 93307-TC; 94002-TC; 94762-TC; 94799-TC; A4216; A4217; A4606; A6403; C1751; J0330; J0360; J1644; J1720; J1815; J1940; J1956; J2185; J2930; J3370; J3490; J7030; J7040; J7050; J7060; P9047; Z7610